=== PATIENT | male | born 1945 | race African-American/Black ===

== ENCOUNTER 2016-05-25 23:45 | Emergency (ER) | payer MEDICARE, BC ==
[~2016-05-25] VITALS: Ht 165.1 cm; Wt 108.9 kg
[~2016-05-25 23:45] MED LIST: ALLO300T PO; AMLO1CAP15 PO; ASPI81TA2 PO; CARV6.252 PO; DOCU-27 PO; DOXA4TAB3 PO; FURO40TA4 PO; GLIM1TAB2 PO; HYDR-2762 PO; IRON1TAB30 PO; METH4TAB2 PO; OXYC10TA PO; OXYC10TA32 PO; POTA25TA4 PO; TIZA4TAB8 PO; [UNRECOGNIZED DRUG - CODE] MC
[2016-05-26] MEDS ORDERED: NORMAL SALINE INJ ONE (00:15)
[2016-05-26] MEDS ORDERED: TRANEXAMIC ACID INJ ONE (00:15)
--- NOTE | 2016-05-26 01:22 | PHYS DOC ---
Past Medical History Past Medical History: Diabetes-Type II, High Cholesterol, Hypertension, Hypothyroid Additional Past Medical Histor: thyroid disease Past Surgical History: Other Additional Past Surgical Histo: left kidney biopsy-benign at [facility] 12/15 Alcohol Use: Heavy Drug Use: None Adult General Chief Complaint Chief Complaint: LACERATION/AVULSION HPI HPI 70-year-old male who is on Coumadin therapy who presents after biting the tip of his tongue with some mild oozing seen at the very distal portion of his tongue. Patient tried applying pressure but states it is still oozing. He denies any other injury. Denies any shortness of breath or chest pain. Pt is in no acute respiratory distress with some mild venous oozing at the tip of his tongue. Review of Systems Review of Systems Constitutional: Denies fever or chills [] Eyes: Denies change in visual acuity, redness, or eye pain [] HENT: Denies nasal congestion or sore throat [] Respiratory: Denies cough or shortness of breath [] Cardiovascular: No additional information not addressed in HPI [] GI: Denies abdominal pain, nausea, vomiting, bloody stools or diarrhea [] : Denies dysuria or hematuria [] Musculoskeletal: Denies back pain or joint pain [] Integument: Denies rash or skin lesions [] Neurologic: Denies headache, focal weakness or sensory changes [] Endocrine: Denies polyuria or polydipsia [] Current Medications Current Medications Current Medications Medications (Trade) Dose Ordered Sig/María Start Time Stop Time Status Last Admin Dose Admin Tranexamic Acid/ Sodium Chloride (Cyklokapron/Iv Sodium Chloride 0.9% 50ml) 11 ml @ 11 mls/min 1X ONCE 05/26/16 00:15 05/26/16 00:16 DC 05/26/16 00:15 11 MLS/MIN Allergies Allergies Allergies Coded Allergies Type Severity Reaction Last Updated Verified No Known Drug Allergies 01/05/15 No Physical Exam Physical Exam Constitutional: Well developed, well nourished, no acute distress, non-toxic appearance. [] HENT: Normocephalic, atraumatic, bilateral external ears normal, oropharynx moist, no oral exudates, nose normal, small focal area of oozing to the distal portion of the tongue, no significant laceration is seen. [] Eyes: PERRLA, EOMI, conjunctiva normal, no discharge. [] Neck: Normal range of motion, no tenderness, supple, no stridor. [] Cardiovascular:Heart rate regular rhythm, no murmur [] Lungs & Thorax: Bilateral breath sounds clear to auscultation [] Abdomen: Bowel sounds normal, soft, no tenderness, no masses, no pulsatile masses. [] Skin: Warm, dry, no erythema, no rash. [] Back: No tenderness, no CVA tenderness. [] Extremities: No tenderness, no cyanosis, no clubbing, ROM intact, no edema. [] Neurologic: Alert and oriented X 3, normal motor function, normal sensory function, no focal deficits noted. [] Psychologic: Affect normal, judgement normal, mood normal. [] Current Patient Data Vital Signs Vital Signs Date Time Temp Pulse Resp B/P Pulse Ox O2 Delivery O2 Flow Rate FiO2 05/26/16 01:40 82 16 167/87 96 Room Air 05/25/16 23:50 98.6 98.6 EKG EKG [] Radiology/Procedures Radiology/Procedures [] Course & Med Decision Making Course & Med Decision Making Pertinent Labs and Imaging studies reviewed. (See chart for details) This 70-year-old male who presented with a small amount of venous oozing to the distal portion of his tongue had pressure and gauze soaked in TXA applied directly to the area for approximately 30 minutes with resolution of bleeding. He will be discharged with instructions to have a soft liquid diet for the next several days and to return if he develops any worsening of his bleeding. There is no indication at this time to perform any laboratory workup. Dragon Disclaimer Dragon Disclaimer This electronic medical record was generated, in whole or in part, using a voice recognition dictation system. Departure Departure Impression: Primary Impression: Tongue laceration Disposition: 01 HOME, SELF-CARE Condition: STABLE Referrals: ALLISON BROWN MD (PCP) Patient Instructions: Tongue Laceration, [id number] Additional Instructions: Please follow up with your primary doctor in the next several days for your tongue injury. Use a soft liquid diet for the next several days and return to the ER if you develop any worsening of your bleeding. GINA PEREZ DO May 26, 2016 01:22
[2016-05-26 01:40] VITALS: BP 167/87
== END 2016-05-26 01:40 | disposition home or self-care (01) ==
LOC: ER 23:45
DX: S01.512A Laceration without foreign body of oral cavity, initial encounter (principal); E03.9 Hypothyroidism, unspecified; E78.00 Pure hypercholesterolemia, unspecified; E11.9 Type 2 diabetes mellitus without complications; I10 Essential (primary) hypertension; Z79.01 Long term (current) use of anticoagulants; W50.3XXA Accidental bite by another person, initial encounter; Y93.89 Activity, other specified; Y92.89 Other specified places as the place of occurrence of the external cause; Y99.8 Other external cause status
CPT/HCPCS: 99282; 99284-25

== ENCOUNTER 2016-12-07 08:09 | Inpatient (IN) | payer MEDICARE, BC ==
[~2016-12-07] VITALS: Ht 171.4 cm; Wt 108.9 kg
[~2016-12-07 08:09] MED LIST changes: +ASPI-630 PO; -ASPI81TA2 PO; +DOCU-109 PO; -DOCU-27 PO; -OXYC10TA32 PO; +OXYC10TA45 PO
--- NOTE | 2016-12-07 08:45 | PHYS DOC ---
Past Medical History Past Medical History: Diabetes-Type II, High Cholesterol, Hypertension, Hypothyroid Additional Past Medical Histor: thyroid disease Past Surgical History: Other Additional Past Surgical Histo: left kidney biopsy-benign at [facility] 12/15, hemorrhoidectomy Alcohol Use: Heavy Drug Use: None Adult General Chief Complaint Chief Complaint: DIZZY/LIGHT HEADED HPI HPI Patient is a 71 year old M who presents with dizziness. Patient states that since yesterday he just feels off balance and is a difficult he walking. Patient states when he walks he needs a hold on the something because his equilibrium was off. Patient denies having the room spinning. Patient states when he is lying down or sitting he feels fine and is only occurs when he walks. Patient denies any chest pain service of breath. Patient denies a headache or any blurry vision. Patient denies any nausea/vomiting/diarrhea. Patient is no other complaints. Patient denies any fevers. Review of Systems Review of Systems GEN: Denies fevers, chills, sweats HEENT: Denies blurred vision, sore throat CV: Denies chest pain RESP: Denies shortness of air, cough GI: Denies n/v/d NEURO: dizziness MSK: Denies weakness, joint pain/swelling Current Medications Current Medications Current Medications Medications (Trade) Dose Ordered Sig/María Start Time Stop Time Status Last Admin Dose Admin Info (Do NOT chart on this entry -- for MONITORING) 1 each PRN DAILY PRN 12/07/16 09:30 12/09/16 09:29 Iohexol (Omnipaque 300 Mg/ml) 75 ml STK-MED ONCE 12/07/16 09:53 12/07/16 09:54 DC Allergies Allergies Allergies Coded Allergies Type Severity Reaction Last Updated Verified No Known Drug Allergies 12/07/16 No Physical Exam Physical Exam GEN.: No apparent distress. Alert and oriented. HEENT: Head is normocephalic, atraumatic NECK: Supple. LUNGS: CTAB. HEART: RRR, S1, S2 present. Peripheral pulses intact ABDOMEN: Soft, nontender. Positive bowel sounds. EXTREMITIES: Without any cyanosis, 5 out of 5 muscle strength proximal and distal muscles of the upper extremity and lower extremity bilaterally NEUROLOGIC: Normal speech, normal tone, cranial nerves II through XII are grossly intact without any focal neurological deficits, normal finger to nose, normal [id number] PSYCHIATRIC: Normal affect, normal mood. SKIN: No ulcerations Current Patient Data Vital Signs Vital Signs Date Time Temp Pulse Resp B/P (MAP) Pulse Ox O2 Delivery O2 Flow Rate FiO2 12/07/16 12:12 70 20 165/86 (112) 100 Room Air 12/07/16 08:25 98.6 98.6 Lab Values Laboratory Tests Test 12/07/16 08:50 12/07/16 09:15 White Blood Count 7.9 x10^3/uL (4.0-11.0) Red Blood Count 4.25 x10^6/uL (4.30-5.70) L Hemoglobin 11.6 g/dL (13.0-17.5) L Hematocrit 36.1 % (39.0-53.0) L Mean Corpuscular Volume 85 fL (79-100) Mean Corpuscular Hemoglobin 27 pg (25-35) Mean Corpuscular Hemoglobin Concent 32 g/dL (31-37) Red Cell Distribution Width 17.3 % (11.5-14.5) H Platelet Count 286 x10^3/uL (140-400) Neutrophils (%) (Auto) 74 % (31-73) H Lymphocytes (%) (Auto) 20 % (24-48) L Monocytes (%) (Auto) 5 % (0-9) Eosinophils (%) (Auto) 1 % (0-3) Basophils (%) (Auto) 1 % (0-3) Neutrophils # (Auto) 5.8 x10^3uL (1.8-7.7) Lymphocytes # (Auto) 1.6 x10^3/uL (1.0-4.8) Monocytes # (Auto) 0.4 x10^3/uL (0.0-1.1) Eosinophils # (Auto) 0.1 x10^3/uL (0.0-0.7) Basophils # (Auto) 0.0 x10^3/uL (0.0-0.2) Sodium Level 143 mmol/L (136-145) Potassium Level 3.0 mmol/L (3.5-5.1) L Chloride Level 102 mmol/L (98-107) Carbon Dioxide Level 31 mmol/L (21-32) Anion Gap 10 (6-14) Blood Urea Nitrogen 5 mg/dL (8-26) L Creatinine 1.4 mg/dL (0.7-1.3) H Estimated GFR (Cockcroft-Gault) 60.1 BUN/Creatinine Ratio 4 (6-20) L Glucose Level 152 mg/dL (70-99) H Calcium Level 9.5 mg/dL (8.5-10.1) Total Bilirubin 0.4 mg/dL (0.2-1.0) Aspartate Amino Transferase (AST) 24 U/L (15-37) Alanine Aminotransferase (ALT) 25 U/L (16-63) Alkaline Phosphatase 171 U/L (46-116) H Troponin I Quantitative < 0.017 ng/mL (0.000-0.055) Total Protein 8.6 g/dL (6.4-8.2) H Albumin 3.9 g/dL (3.4-5.0) Albumin/Globulin Ratio 0.8 (1.0-1.7) L Urine Collection Type Unknown Urine Color Yellow Urine Clarity Clear Urine pH 7.5 Urine Specific Belt 1.010 Urine Protein 30 mg/dL (NEG-TRACE) Urine Glucose (UA) Negative mg/dL (NEG) Urine Ketones (Stick) Negative mg/dL (NEG) Urine Blood Negative (NEG) Urine Nitrite Negative (NEG) Urine Bilirubin Negative (NEG) Urine Urobilinogen Dipstick 0.2 mg/dL (0.2 mg/dL) Urine Leukocyte Esterase Negative (NEG) Urine RBC 1-2 /HPF (0-2) Urine WBC 0 /HPF (0-4) Urine Squamous Epithelial Cells Occ /LPF Urine Bacteria 0 /HPF (0-FEW) Laboratory Tests 12/07/16 08:50 Laboratory Tests 12/07/16 08:50 EKG EKG 0835: EKG shows normal sinus rhythm rate of 70 no STEMI[] Radiology/Procedures Radiology/Procedures CTA of the head and neck unremarkable Chest x-ray NAD[] Course & Med Decision Making Course & Med Decision Making Pertinent Labs and Imaging studies reviewed. (See chart for details) ED course: Patient was seen and examined emergency room CBC, CMP, troponin, CT A of the head and neck and chest x-ray were ordered along with EKG 1150: Patient was reevaluated and updated on lab results and CT results patient was still having symptoms therefore plan was to admit to rule out a cerebellar infarct 1209: Discussed CC/HP/PMH with Dr. colon and recommends admit [] [] Dragon Disclaimer Dragon Disclaimer This electronic medical record was generated, in whole or in part, using a voice recognition dictation system. Departure Departure Impression: Primary Impression: Cerebellar infarct Disposition: 09 ADMITTED INPATIENT Admitting Physician: Mikayla Colon Condition: IMPROVED Referrals: ALLISON BROWN MD (PCP) ZULEMA LIMA DO Dec 07, 2016 08:45
[2016-12-07 09:07] LABS: CALCIUM 9.5 mg/dL (8.5-10.1); CREATININE 1.4 mg/dL (0.7-1.3); GFR 60.1
[2016-12-07 09:13] LABS: ALBUMIN 3.9 g/dL (3.4-5.0); ALBUMIN/GLOBULIN RATIO 0.8 (1.0-1.7); BASO % 1 % (0-3); EOS % 1 % (0-3); HEMATOCRIT 36.1 % (39.0-53.0); HEMOGLOBIN 11.6 g/dL (13.0-17.5); LYMPH # 1.6 x10^3/uL (1.0-4.8); LYMPH % 20 % (24-48); MEAN CORPUSCULAR HEMOGLOBIN 27 pg (25-35); MEAN CORPUSCULAR HGB CONC 32 g/dL (31-37); MEAN CORPUSCULAR VOLUME 85 fL (79-100); MONO % 5 % (0-9); NEUT % 74 % (31-73); PLATELET COUNT 286 x10^3/uL (140-400); RED BLOOD COUNT 4.25 x10^6/uL (4.30-5.70); RED CELL DISTRIBUTION WIDTH 17.3 % (11.5-14.5); TOTAL BILIRUBIN 0.4 mg/dL (0.2-1.0); TOTAL PROTEIN 8.6 g/dL (6.4-8.2); WHITE BLOOD COUNT 7.9 x10^3/uL (4.0-11.0)
--- NOTE | 2016-12-07 09:23 | RAD ---
Portable chest, 12/07/2016: History: Dizziness Comparison is made to a study from 06/08/2015. A left-sided transvenous pacemaker has been inserted with one lead extending into the right ventricle while the tip of the other lead is projected over the superior aspect of the right atrium. The heart remains at the upper limits of normal in size. There is mild tortuosity of the thoracic aorta. The pulmonary vascularity is normal. There is minimal linear scarring in the right base. No pulmonary consolidation is seen. There is no evidence of pleural fluid or pneumothorax. IMPRESSION: 1. Interval insertion of a left-sided transvenous pacemaker. 2. No other significant change since 06/08/2015.
[2016-12-07] MEDS ORDERED: IOHEXOL 300 MG/ML 75 ML VIAL IV ONE (09:30)
[2016-12-07] MEDS ORDERED: CONTRAST GIVEN MC PRN (09:30)
[2016-12-07 09:35] LABS: BILIRUBIN,URINE NEGATIVE (NEG); GLUCOSE,URINE NEGATIVE (NEG); NITRITE,URINE NEGATIVE (NEG); PH,URINE 7.5; PROTEIN,URINE 30 mg/dL (NEG-TRACE); UROBILINOGEN,URINE 0.2 mg/dL (0.2 mg/dL)
[2016-12-07] MEDS ORDERED: IOHEXOL 300 MG/ML 75 ML VIAL ONE (09:53)
[2016-12-07 10:04] LABS: BACTERIA,URINE 0 /HPF (0-FEW); SQUAMOUS EPITHELIAL CELL,UR OCC /LPF; WBC,URINE 0 /HPF (0-4)
--- NOTE | 2016-12-07 11:19 | RAD ---
Indication dizziness. CTA targeted to the major vessels off the arch of the aorta was performed. The examination was carried throughout the head. Images were reformatted in the coronal and sagittal planes. Volume rendered images were also generated and reviewed. Approximately 75 cc of Omnipaque 300 was administered. The lung apices are clear. No significant soft tissue finding is seen in the neck. No mass or midline shift in the head is seen. No acute finding or mass is seen. The innominate artery is not seen at its origin but the visualized innominate appears unremarkable. The innominate artery bifurcates unremarkably into the right common carotid and right subclavian arteries. The origination of the left common carotid off the arch is unremarkable and the origin of the left subclavian is also unremarkable. That portion of the left subclavian which is seen appears unremarkable. On the right the common carotid artery is tortuous. There is some minimal plaquing at the bifurcation. The internal carotid also is somewhat tortuous. The horizontal and cavernous segments appear unremarkable and the supraclinoid portion of the vessel is also unremarkable. The left common carotid is also somewhat tortuous. There is some slight plaquing at the bifurcation without evidence of significant stenosis. The internal carotid is tortuous. The horizontal, cavernous and supraclinoid segments are unremarkable. The vertebral arteries originate unremarkably off their respective subclavian arteries. Both vertebral arteries appear unremarkable and unite to form the basilar artery which appears unremarkable. The left A1 segment is somewhat hypoplastic. This is likely a normal variant. No significant vascular anomaly is seen intracranially. The posterior fossa appears unremarkable. IMPRESSION: No evidence of significant arterial disease in the neck or head
[2016-12-07] MEDS ORDERED: MORPHINE SULFATE 4 MG/ML DISP.SYRIN. IV PRN (12:30)
[2016-12-07] MEDS ORDERED: ONDANSETRON PF 4 MG/2 ML VIAL. IV PRN (12:30)
[2016-12-07 14:15] VITALS: BP 171/89
[2016-12-07] MEDS ORDERED: CARV25TA2 PO (14:18)
[2016-12-07] MEDS ORDERED: HYDR-2762 PO (14:18)
[2016-12-07] MEDS ORDERED: WARF4TAB7 PO (14:18)
[2016-12-07] MEDS ORDERED: WARF6TAB49 PO (14:18)
--- NOTE | 2016-12-07 14:19 | EKG ---
[facility] [address] [place] [address] Test Date: 2016-12-07 Test Time: 08:30:51 Pat Name: MALINDA SARABIA Department: Room: [facility] Gender: M Medical Policy Specialist: : 1945 Requested By: ZULEMA LIMA Order Number: [id number] Reading MD: Heena Pulido Measurements Intervals [place] Rate: 70 P: MO: QRS: -36 QRSD: 96 T: 26 QT: 380 QTc: 413 Interpretive Statements ELECTRONIC PACEMAKER A PACED WITH NORMAL QRS CONDUCTION ABNORMAL LEFT AXIS DEVIATION LEFT ANTERIOR FASCICULAR BLOCK T ABNORMALITY IN ANTEROLATERAL LEADS ABNORMAL ECG Electronically Signed On 12-10-2016 9:34:32 CDT by Heena Pulido
[2016-12-07] MEDS ORDERED: POTA20TA82 PO (14:40)
[2016-12-07] MEDS ORDERED: LEVO75TA PO (14:40)
[2016-12-07] MEDS ORDERED: ATOR40TA59 PO (14:40)
[2016-12-07] MEDS ORDERED: FURO40TA4 PO (14:40)
[2016-12-07] MEDS ORDERED: DOCUSATE SODIUM 100 MG CAPSULE. PO PRN (15:30)
[2016-12-07] MEDS ORDERED: POTASSIUM CHLORIDE 20 MEQ TABLET.ER. PO ONE (15:30)
[2016-12-07] MEDS ORDERED: HYDROcodone/APAP 7.5/325MG 1 TAB TABLET PO PRN (15:30)
[2016-12-07 15:58] LABS: INR 2.6 (0.8-1.1); PROTHROMBIN TIME PATIENT 26.3 SEC (11.7-14.0)
--- NOTE | 2016-12-07 16:45 | RAD ---
Indication TIA. Grayscale color Doppler and spectral imaging was performed. Examination was targeted to the carotid bifurcations. On the right there is some slight plaquing. Note is made of a somewhat tortuous common carotid artery. The common carotid waveform and velocities are normal. The external carotid has a normal appearance. The internal carotid waveform and velocities are within normal limits. The vertebral is patent and demonstrates normal directional flow. On the left there is also some minimal plaquing at the bifurcation. The common carotid waveform and velocities are normal. The external carotid has a normal appearance. The internal carotid waveform and velocities are normal. The vertebral is patent and demonstrates normal directional flow. Visualized portions of both subclavian arteries appeared unremarkable. IMPRESSION: No evidence of hemodynamically significant stenosis at either carotid bifurcation. Stenosis 0-50%. Note: Stenosis calculations for CT, MR and conventional angiography are based upon determination of the distal ICA diameter in accordance with the NASCET methodology. Stenosis calculations for doppler studies are derived from validated velocity criteria which are known to correlate with NASCET methodology of determining stenosis.
--- NOTE | 2016-12-07 16:54 | PDOC2 ---
NEUROLOGY CONSULT Date of Admission Date of Admission DATE: 12/07/16 TIME: 16:45 Reason for Consult Reason for Consult: Possible cerebellar stroke Referring Physician Referring Physician: Dr. Aldana PCP: Dr. Jimenez Source Source: Chart review, Patient History of Present Illness History of Present Illness The patient is a 71-year-old right-handed male who started to field dizzy yesterday afternoon about 2 PM. He felt off balance. He was trying to put some eyedrops and and was feeling off balance then. There is no dysarthria, dysphagia , diplopia, numbness, weakness, tinnitus, hearing loss, or pain. For the nurse he describes some neck pain but he denies that to me.The patient does have diabetes. He has never had a stroke, seizure, or head injury. He still feels off balance today but denies true vertigo or ataxia. Past Medical History Cardiovascular: HTN, Hyperlipidemia Pulmonary: Other Musculoskeletal: Osteoarthritis Endocrine: Diabetes Past Surgical History Past Surgical History: Pacemaker, Other (left kidney) Family History Family History: CAD Social History Social History , no tobacco or alcohol in over 5 years Current Medications Current Medications Current Medications Iohexol (Omnipaque 300 Mg/ml) 75 ml 1X ONCE IV Last administered on 12/07/16t 10:15; Start 12/07/16 at 09:30; Stop 12/07/16 at 09:31; Status DC Info (Do NOT chart on this entry -- for MONITORING) 1 each PRN DAILY PRN MC SEE COMMENTS; Start 12/07/16 at 09:30; Stop 12/09/16 at 09:29 Iohexol (Omnipaque 300 Mg/ml) 75 ml STK-MED ONCE .ROUTE ; Start 12/07/16 at 09:53 ; Stop 12/07/16 at 09:54; Status DC Ondansetron HCl (Zofran) 4 mg PRN Q8HRS PRN IV NAUSEA/VOMITING; Start 12/07/16 at 12:30; Stop 12/08/16 at 12:29 Morphine Sulfate 4 mg PRN Q2HR PRN IV PAIN; Start 12/07/16 at 12:30; Stop at 12:29 Potassium Chloride (Klor-Con) 40 meq 1X ONCE PO ; Start 12/07/16 at 15:30; Stop 12/07/16 at 15:40; Status DC Potassium Chloride (Klor-Con) 20 meq DAILYWBKFT PO ; Start 12/08/16 at 08:00 Allopurinol (Zyloprim) 300 mg DAILY PO ; Start 12/08/16 at 09:00 Atorvastatin Calcium (Lipitor) 40 mg QHS PO ; Start 12/07/16 at 21:00 Docusate Sodium (Colace) 100 mg PRN BID PRN PO CONSTIPATION; Start 12/07/16 at 15:30 Doxazosin Mesylate (Cardura) 4 mg DAILY PO ; Start 12/08/16 at 09:00 Furosemide (Lasix) 40 mg DAILY PO ; Start 12/08/16 at 09:00 Acetaminophen/ Hydrocodone Bitart (Lortab 7.5/325) 1 tab PRN Q6HRS PRN PO PAIN ; Start 12/07/16 at 15:30 Levothyroxine Sodium (Synthroid) 75 mcg DAILY07 PO ; Start 12/08/16 at 07:00 Warfarin Sodium (Coumadin) 4 mg SuMoTuThFr PO ; Start 12/08/16 at 16:00 Warfarin Sodium (Coumadin) 6 mg WeSa PO ; Start 12/10/16 at 16:00 Carvedilol (Coreg) 25 mg BIDWMEALS PO ; Start 12/07/16 at 17:00 Glimepiride (Amaryl) 1 mg DAILY PO ; Start 12/08/16 at 09:00 Aspirin (Kailyn Aspirin) 325 mg DAILYWBKFT PO ; Start 12/08/16 at 08:00 Active Scripts Active Colace (Docusate Sodium) 100 Mg Capsule 100 Cap PO PRN BID PRN Reported Potassium Chloride 20 Meq Tablet.er 20 Meq PO DAILY Furosemide 40 Mg Tablet 40 Mg PO DAILY Atorvastatin Calcium 40 Mg Tablet 40 Mg PO DAILY Synthroid (Levothyroxine Sodium) 75 Mcg Tablet 75 Mcg PO DAILYAC Hydrocodone-Apap 7.5-325 (Hydrocodone Bit/Acetaminophen) 1 Each Tablet 1 Tab PO PRN Q6HRS PRN Warfarin Sodium 4 Mg Tablet 4 Mg PO DAILY 4 mg Sun, Mon, , , Monday Coumadin (Warfarin Sodium) 6 Mg Tablet 6 Mg PO DAILY 6 mg Monday and Monday Carvedilol 25 Mg Tablet 25 Mg PO BIDWMEALS Aspirin 81 Mg Tab.chew 1 Tab PO BID Iron 100 Plus Tablet (Iron,Carbonyl/Vit C/Vit B12/Fa) 1 Each Tablet 1 Each PO Allopurinol 300 Mg Tablet 1 Tab PO DAILY Glimepiride 1 Mg Tablet 1 Tab PO DAILY Doxazosin Mesylate 4 Mg Tablet 1 Tab PO DAILY Allergies Allergies: Coded Allergies: No Known Drug Allergies (Unverified , 12/07/16) ROS Review of System Patient denies fevers, chills, weight loss, dyspnea, angina, abdominal pain, change in bowels, or dysuria. 14 point review of systems is negative. Physical Exam Physical Examination PHYSICAL EXAMINATION: Vital signs: see above. General appearance is normal and in no acute distress. HEENT: Normocephalic and nontraumatic. Eyes, nose, ears, and throat are unremarkable. Tympanic membranes are clear Neck is supple. No lymphadenopathy. No bruits are heard over the carotid artery. No crepitus. NEUROLOGICAL EXAMINATION: Mental Status Examination: Alert. Oriented to time, place, and person. Answers questions and follows commends. Pupils are equal round and reactive to light and accommodation. Extraocular movements are intact. Vestibular ocular reflex is normal, and there is no nice Stegman's. Visual field exam shows no defect on the direct confrontation. No motor or sensory deficits on the facial exam. Uvula in the midline and the soft palate elevated symmetrically. No deviation of the tongue to any direction. Gross hearing is normal. Shoulder shrug normal. Muscle tone is normal. Muscle strength is 5/5. Deep tendon reflexes are 0+ all around. Plantar reflex is with flexion response bilaterally. Finger -to-nose test performance is accurate. Alternative movements are accurate. Gait is apraxic. Sensory exam shows stocking loss. No cerebellar signs are elicited. Vitals VITALS Vital Signs Date Time Temp Pulse Resp B/P (MAP) Pulse Ox O2 Delivery O2 Flow Rate FiO2 12/07/16 15:36 Room Air 12/07/16 14:15 97.8 72 20 171/89 (116) 94 97.8 Labs Labs Laboratory Tests Test 12/07/16 08:50 12/07/16 09:15 White Blood Count 7.9 x10^3/uL (4.0-11.0) Red Blood Count 4.25 x10^6/uL (4.30-5.70) Hemoglobin 11.6 g/dL (13.0-17.5) Hematocrit 36.1 % (39.0-53.0) Mean Corpuscular Volume 85 fL (79-100) Mean Corpuscular Hemoglobin 27 pg (25-35) Mean Corpuscular Hemoglobin Concent 32 g/dL (31-37) Red Cell Distribution Width 17.3 % (11.5-14.5) Platelet Count 286 x10^3/uL (140-400) Neutrophils (%) (Auto) 74 % (31-73) Lymphocytes (%) (Auto) 20 % (24-48) Monocytes (%) (Auto) 5 % (0-9) Eosinophils (%) (Auto) 1 % (0-3) Basophils (%) (Auto) 1 % (0-3) Neutrophils # (Auto) 5.8 x10^3uL (1.8-7.7) Lymphocytes # (Auto) 1.6 x10^3/uL (1.0-4.8) Monocytes # (Auto) 0.4 x10^3/uL (0.0-1.1) Eosinophils # (Auto) 0.1 x10^3/uL (0.0-0.7) Basophils # (Auto) 0.0 x10^3/uL (0.0-0.2) Prothrombin Time 26.3 SEC (11.7-14.0) Prothromb Time International Ratio 2.6 (0.8-1.1) Sodium Level 143 mmol/L (136-145) Potassium Level 3.0 mmol/L (3.5-5.1) Chloride Level 102 mmol/L (98-107) Carbon Dioxide Level 31 mmol/L (21-32) Anion Gap 10 (6-14) Blood Urea Nitrogen 5 mg/dL (8-26) Creatinine 1.4 mg/dL (0.7-1.3) Estimated GFR (Cockcroft-Gault) 60.1 BUN/Creatinine Ratio 4 (6-20) Glucose Level 152 mg/dL (70-99) Calcium Level 9.5 mg/dL (8.5-10.1) Total Bilirubin 0.4 mg/dL (0.2-1.0) Aspartate Amino Transf (AST/SGOT) 24 U/L (15-37) Alanine Aminotransferase (ALT/SGPT) 25 U/L (16-63) Alkaline Phosphatase 171 U/L (46-116) Troponin I Quantitative < 0.017 ng/mL (0.000-0.055) Total Protein 8.6 g/dL (6.4-8.2) Albumin 3.9 g/dL (3.4-5.0) Albumin/Globulin Ratio 0.8 (1.0-1.7) Urine Collection Type Unknown Urine Color Yellow Urine Clarity Clear Urine pH 7.5 Urine Specific [place] 1.010 Urine Protein 30 mg/dL (NEG-TRACE) Urine Glucose (UA) Negative mg/dL (NEG) Urine Ketones (Stick) Negative mg/dL (NEG) Urine Blood Negative (NEG) Urine Nitrite Negative (NEG) Urine Bilirubin Negative (NEG) Urine Urobilinogen Dipstick 0.2 mg/dL (0.2 mg/dL) Urine Leukocyte Esterase Negative (NEG) Urine RBC 1-2 /HPF (0-2) Urine WBC 0 /HPF (0-4) Urine Squamous Epithelial Cells Occ /LPF Urine Bacteria 0 /HPF (0-FEW) Laboratory Tests Test 12/07/16 08:50 12/07/16 09:15 White Blood Count 7.9 x10^3/uL (4.0-11.0) Red Blood Count 4.25 x10^6/uL (4.30-5.70) Hemoglobin 11.6 g/dL (13.0-17.5) Hematocrit 36.1 % (39.0-53.0) Mean Corpuscular Volume 85 fL (79-100) Mean Corpuscular Hemoglobin 27 pg (25-35) Mean Corpuscular Hemoglobin Concent 32 g/dL (31-37) Red Cell Distribution Width 17.3 % (11.5-14.5) Platelet Count 286 x10^3/uL (140-400) Neutrophils (%) (Auto) 74 % (31-73) Lymphocytes (%) (Auto) 20 % (24-48) Monocytes (%) (Auto) 5 % (0-9) Eosinophils (%) (Auto) 1 % (0-3) Basophils (%) (Auto) 1 % (0-3) Neutrophils # (Auto) 5.8 x10^3uL (1.8-7.7) Lymphocytes # (Auto) 1.6 x10^3/uL (1.0-4.8) Monocytes # (Auto) 0.4 x10^3/uL (0.0-1.1) Eosinophils # (Auto) 0.1 x10^3/uL (0.0-0.7) Basophils # (Auto) 0.0 x10^3/uL (0.0-0.2) Prothrombin Time 26.3 SEC (11.7-14.0) Prothromb Time International Ratio 2.6 (0.8-1.1) Sodium Level 143 mmol/L (136-145) Potassium Level 3.0 mmol/L (3.5-5.1) Chloride Level 102 mmol/L (98-107) Carbon Dioxide Level 31 mmol/L (21-32) Anion Gap 10 (6-14) Blood Urea Nitrogen 5 mg/dL (8-26) Creatinine 1.4 mg/dL (0.7-1.3) Estimated GFR (Cockcroft-Gault) 60.1 BUN/Creatinine Ratio 4 (6-20) Glucose Level 152 mg/dL (70-99) Calcium Level 9.5 mg/dL (8.5-10.1) Total Bilirubin 0.4 mg/dL (0.2-1.0) Aspartate Amino Transf (AST/SGOT) 24 U/L (15-37) Alanine Aminotransferase (ALT/SGPT) 25 U/L (16-63) Alkaline Phosphatase 171 U/L (46-116) Troponin I Quantitative < 0.017 ng/mL (0.000-0.055) Total Protein 8.6 g/dL (6.4-8.2) Albumin 3.9 g/dL (3.4-5.0) Albumin/Globulin Ratio 0.8 (1.0-1.7) Urine Collection Type Unknown Urine Color Yellow Urine Clarity Clear Urine pH 7.5 Urine Specific [place] 1.010 Urine Protein 30 mg/dL (NEG-TRACE) Urine Glucose (UA) Negative mg/dL (NEG) Urine Ketones (Stick) Negative mg/dL (NEG) Urine Blood Negative (NEG) Urine Nitrite Negative (NEG) Urine Bilirubin Negative (NEG) Urine Urobilinogen Dipstick 0.2 mg/dL (0.2 mg/dL) Urine Leukocyte Esterase Negative (NEG) Urine RBC 1-2 /HPF (0-2) Urine WBC 0 /HPF (0-4) Urine Squamous Epithelial Cells Occ /LPF Urine Bacteria 0 /HPF (0-FEW) Images Images CTA targeted to the major vessels off the arch of the aorta was performed. The examination was carried throughout the head. Images were reformatted in the coronal and sagittal planes. Volume rendered images were also generated and reviewed. Approximately 75 cc of Omnipaque 300 was administered. The lung apices are clear. No significant soft tissue finding is seen in the neck. No mass or midline shift in the head is seen. No acute finding or mass is seen. The innominate artery is not seen at its origin but the visualized innominate appears unremarkable. The innominate artery bifurcates unremarkably into the right common carotid and right subclavian arteries. The origination of the left common carotid off the arch is unremarkable and the origin of the left subclavian is also unremarkable. That portion of the left subclavian which is seen appears unremarkable. On the right the common carotid artery is tortuous. There is some minimal plaquing at the bifurcation. The internal carotid also is somewhat tortuous. The horizontal and cavernous segments appear unremarkable and the supraclinoid portion of the vessel is also unremarkable. The left common carotid is also somewhat tortuous. There is some slight plaquing at the bifurcation without evidence of significant stenosis. The internal carotid is tortuous. The horizontal, cavernous and supraclinoid segments are unremarkable. The vertebral arteries originate unremarkably off their respective subclavian arteries. Both vertebral arteries appear unremarkable and unite to form the basilar artery which appears unremarkable. The left A1 segment is somewhat hypoplastic. This is likely a normal variant. No significant vascular anomaly is seen intracranially. The posterior fossa appears unremarkable. IMPRESSION: No evidence of significant arterial disease in the neck or head Assessment/Plan Assessment/Plan Impression: Exam more consistent with gait apraxia due to diabetic neuropathy, with stroke less likely Recommendation: PT/OT/ST Check if pacemaker is MRI-compatible, otherwise repeat CT head in 2 days. Hold on echo. Had CTA, carotids ordered anyway. Aspirin Check lipids Thank you for letting me help with the patient's care. CAREY PINA MD Dec 07, 2016 16:54
[2016-12-07] MEDS: CARVEDILOL 12.5 MG TABLET. PO SCH (17:39)
--- NOTE | 2016-12-07 18:03 | PDOC1 ---
History and Physical Date of Admission Date of Admission DATE: 12/07/16 TIME: 18:02 Identification/Chief Complaint Chief Complaint no balance, poor coordination Problems: Source Source: Caregiver, Chart review History of Present Illness History of Present Illness MR Guerra is a 71-year-old male admit for new weakness and trouble walking. He does not feel dizzy or that he or the room is spinning. He describes poor balance, and feeling that he may fall, but has not done so. He can climb stairs, but would need to hold on to the railing (and he motioned in a drastic manner) he has a cane with him, he reports this is a new time, and he did not need a cane a few days ago. no pain, no weight change + compliant iwth meds he reports his symptoms mostly started yesterday, and are now improved in the past few hours since arriving to ER Past Medical History Cardiovascular: HTN, Hyperlipidemia Pulmonary: Other Musculoskeletal: Osteoarthritis Endocrine: Diabetes Past Surgical History Past Surgical History: Pacemaker, Other (left kidney) Family History Family History: Diabetes Social History Smoke: Quit ALCOHOL: none (quit) Drugs: None Current Problem List Problem List Problems Medical Problems: (1) Cerebellar infarct Status: Acute Problems: Current Medications Current Medications Current Medications Iohexol (Omnipaque 300 Mg/ml) 75 ml 1X ONCE IV Last administered on 12/07/16t 10:15; Start 12/07/16 at 09:30; Stop 12/07/16 at 09:31; Status DC Info (Do NOT chart on this entry -- for MONITORING) 1 each PRN DAILY PRN MC SEE COMMENTS; Start 12/07/16 at 09:30; Stop 12/09/16 at 09:29 Iohexol (Omnipaque 300 Mg/ml) 75 ml STK-MED ONCE .ROUTE ; Start 12/07/16 at 09:53 ; Stop 12/07/16 at 09:54; Status DC Ondansetron HCl (Zofran) 4 mg PRN Q8HRS PRN IV NAUSEA/VOMITING; Start 12/07/16 at 12:30; Stop 12/08/16 at 12:29 Morphine Sulfate 4 mg PRN Q2HR PRN IV PAIN; Start 12/07/16 at 12:30; Stop at 12:29 Potassium Chloride (Klor-Con) 40 meq 1X ONCE PO Last administered on 12/07/16 17:38; Start 12/07/16 at 15:30; Stop 12/07/16 at 15:40; Status DC Potassium Chloride (Klor-Con) 20 meq DAILYWBKFT PO ; Start 12/08/16 at 08:00 Allopurinol (Zyloprim) 300 mg DAILY PO ; Start 12/08/16 at 09:00 Atorvastatin Calcium (Lipitor) 40 mg QHS PO ; Start 12/07/16 at 21:00 Docusate Sodium (Colace) 100 mg PRN BID PRN PO CONSTIPATION; Start 12/07/16 at 15:30 Doxazosin Mesylate (Cardura) 4 mg DAILY PO ; Start 12/08/16 at 09:00 Furosemide (Lasix) 40 mg DAILY PO ; Start 12/08/16 at 09:00 Acetaminophen/ Hydrocodone Bitart (Lortab 7.5/325) 1 tab PRN Q6HRS PRN PO PAIN ; Start 12/07/16 at 15:30 Levothyroxine Sodium (Synthroid) 75 mcg DAILY07 PO ; Start 12/08/16 at 07:00 Warfarin Sodium (Coumadin) 4 mg SuMoTuThFr PO ; Start 12/08/16 at 16:00 Warfarin Sodium (Coumadin) 6 mg WeSa PO ; Start 12/10/16 at 16:00 Carvedilol (Coreg) 25 mg BIDWMEALS PO Last administered on 12/07/16 17:39; Start 12/07/16 at 17:00 Glimepiride (Amaryl) 1 mg DAILY PO ; Start 12/08/16 at 09:00 Aspirin (Kailyn Aspirin) 325 mg DAILYWBKFT PO ; Start 12/08/16 at 08:00 Active Scripts Active Colace (Docusate Sodium) 100 Mg Capsule 100 Cap PO PRN BID PRN Reported Potassium Chloride 20 Meq Tablet.er 20 Meq PO DAILY Furosemide 40 Mg Tablet 40 Mg PO DAILY Atorvastatin Calcium 40 Mg Tablet 40 Mg PO DAILY Synthroid (Levothyroxine Sodium) 75 Mcg Tablet 75 Mcg PO DAILYAC Hydrocodone-Apap 7.5-325 (Hydrocodone Bit/Acetaminophen) 1 Each Tablet 1 Tab PO PRN Q6HRS PRN Warfarin Sodium 4 Mg Tablet 4 Mg PO DAILY 4 mg Sun, Mon, , , Monday Coumadin (Warfarin Sodium) 6 Mg Tablet 6 Mg PO DAILY 6 mg Monday and Monday Carvedilol 25 Mg Tablet 25 Mg PO BIDWMEALS Aspirin 81 Mg Tab.chew 1 Tab PO BID Iron 100 Plus Tablet (Iron,Carbonyl/Vit C/Vit B12/Fa) 1 Each Tablet 1 Each PO Allopurinol 300 Mg Tablet 1 Tab PO DAILY Glimepiride 1 Mg Tablet 1 Tab PO DAILY Doxazosin Mesylate 4 Mg Tablet 1 Tab PO DAILY Allergies Allergies: Coded Allergies: No Known Drug Allergies (Unverified , 12/07/16) ROS General: No: Chills, Night Sweats, Malaise, Appetite, Other PSYCHOLOGICAL ROS: No: Anxiety, Behavioral Disorder, Concentration difficultie , Decreased libido, Depression, Disorientation, Hallucinations, Hostility, Irritablity, Memory difficulties, Mood Swings, Obsessive thoughts, Other Eyes: No Blurry vision, No Decreased vision, No Double vision, No Dry eyes, No Excessive tearing, No Eye Pain, No Itchy Eyes, No Loss of vision, No Photophobia , No Scotomata, No Uses contacts, No Uses glasses, No Other HEENT: No: Heacaches, Visual Changes, Hearing change, Nasal congestion, Nasal discharge, Oral lesions, Sinus pain, Sore Throat, Epistaxis, Sneezing, Snoring, Tinnitus, Vertigo, Vocal changes, Other Respiratory: No: Cough, Hemoptysis, Orthopnea, Pleuritic Pain, Shortness of breath, SOB with excertion, Sputum Changes, Stridor, Tachypnea, Wheezing, Other Cardiovascular: No Chest Pain, No Palpitations, No Orthopnea, No Paroxysmal Noc. Dyspnea, No Edema, No Lt Headedness, No Other Gastrointestinal: No Nausea, No Vomiting, No Abdominal Pain, No Diarrhea, No Constipation, No Melena, No Hematochezia, No Other Musculoskeletal: Yes Gait Disturbance, Yes Joint Stiffness, No Joint Pain, No Joint Swelling, No Muscle Pain, No Muscular Weakness, No Pain In:, No Swelling In:, No Other Neurological: Yes Gait Disturbance, Yes Impaired Coord/balance, No Behavorial Changes, No Bowel/Bladder ControlChng, No Confusion, No Dizziness, No Headaches, No Memory Loss, No Numbness/Tingling, No Seizures, No Speech Problems, No Tremors, No Visual Changes, No Weakness, No Other Skin: Yes Dry Skin, No Eczema, No Hair Changes, No Lumps, No Mole Changes, No Mottling, No Nail Changes, No Pruritus, No Rash, No Skin Lesion Changes, No Other, No Acne Physical Exam General: Alert, Oriented X3, Cooperative, No acute distress HEENT: EOMI, Mucous membr. moist/pink Lungs: Normal air movement Heart: no gallops, no murmurs Abdomen: Normal bowel sounds, Soft Rectal Exam: not examined Extremities: No clubbing, No edema, Normal pulses Skin: No breakdown, No significant lesion Neuro: Normal speech, Normal tone, Sensation intact Psych/Mental Status: Mood NL Vitals Vitals Vital Signs Date Time Temp Pulse Resp B/P (MAP) Pulse Ox O2 Delivery O2 Flow Rate FiO2 12/07/16 17:39 72 171/89 12/07/16 15:36 Room Air 12/07/16 14:15 97.8 20 94 97.8 Labs Labs Laboratory Tests Test 12/07/16 08:50 12/07/16 09:15 12/07/16 17:36 White Blood Count 7.9 x10^3/uL (4.0-11.0) Red Blood Count 4.25 x10^6/uL (4.30-5.70) Hemoglobin 11.6 g/dL (13.0-17.5) Hematocrit 36.1 % (39.0-53.0) Mean Corpuscular Volume 85 fL (79-100) Mean Corpuscular Hemoglobin 27 pg (25-35) Mean Corpuscular Hemoglobin Concent 32 g/dL (31-37) Red Cell Distribution Width 17.3 % (11.5-14.5) Platelet Count 286 x10^3/uL (140-400) Neutrophils (%) (Auto) 74 % (31-73) Lymphocytes (%) (Auto) 20 % (24-48) Monocytes (%) (Auto) 5 % (0-9) Eosinophils (%) (Auto) 1 % (0-3) Basophils (%) (Auto) 1 % (0-3) Neutrophils # (Auto) 5.8 x10^3uL (1.8-7.7) Lymphocytes # (Auto) 1.6 x10^3/uL (1.0-4.8) Monocytes # (Auto) 0.4 x10^3/uL (0.0-1.1) Eosinophils # (Auto) 0.1 x10^3/uL (0.0-0.7) Basophils # (Auto) 0.0 x10^3/uL (0.0-0.2) Prothrombin Time 26.3 SEC (11.7-14.0) Prothromb Time International Ratio 2.6 (0.8-1.1) Sodium Level 143 mmol/L (136-145) Potassium Level 3.0 mmol/L (3.5-5.1) Chloride Level 102 mmol/L (98-107) Carbon Dioxide Level 31 mmol/L (21-32) Anion Gap 10 (6-14) Blood Urea Nitrogen 5 mg/dL (8-26) Creatinine 1.4 mg/dL (0.7-1.3) Estimated GFR (Cockcroft-Gault) 60.1 BUN/Creatinine Ratio 4 (6-20) Glucose Level 152 mg/dL (70-99) Calcium Level 9.5 mg/dL (8.5-10.1) Total Bilirubin 0.4 mg/dL (0.2-1.0) Aspartate Amino Transf (AST/SGOT) 24 U/L (15-37) Alanine Aminotransferase (ALT/SGPT) 25 U/L (16-63) Alkaline Phosphatase 171 U/L (46-116) Troponin I Quantitative < 0.017 ng/mL (0.000-0.055) Total Protein 8.6 g/dL (6.4-8.2) Albumin 3.9 g/dL (3.4-5.0) Albumin/Globulin Ratio 0.8 (1.0-1.7) Urine Collection Type Unknown Urine Color Yellow Urine Clarity Clear Urine pH 7.5 Urine Specific [place] 1.010 Urine Protein 30 mg/dL (NEG-TRACE) Urine Glucose (UA) Negative mg/dL (NEG) Urine Ketones (Stick) Negative mg/dL (NEG) Urine Blood Negative (NEG) Urine Nitrite Negative (NEG) Urine Bilirubin Negative (NEG) Urine Urobilinogen Dipstick 0.2 mg/dL (0.2 mg/dL) Urine Leukocyte Esterase Negative (NEG) Urine RBC 1-2 /HPF (0-2) Urine WBC 0 /HPF (0-4) Urine Squamous Epithelial Cells Occ /LPF Urine Bacteria 0 /HPF (0-FEW) Glucose (Fingerstick) 94 mg/dL (70-99) Laboratory Tests Test 12/07/16 08:50 12/07/16 09:15 12/07/16 17:36 White Blood Count 7.9 x10^3/uL (4.0-11.0) Red Blood Count 4.25 x10^6/uL (4.30-5.70) Hemoglobin 11.6 g/dL (13.0-17.5) Hematocrit 36.1 % (39.0-53.0) Mean Corpuscular Volume 85 fL (79-100) Mean Corpuscular Hemoglobin 27 pg (25-35) Mean Corpuscular Hemoglobin Concent 32 g/dL (31-37) Red Cell Distribution Width 17.3 % (11.5-14.5) Platelet Count 286 x10^3/uL (140-400) Neutrophils (%) (Auto) 74 % (31-73) Lymphocytes (%) (Auto) 20 % (24-48) Monocytes (%) (Auto) 5 % (0-9) Eosinophils (%) (Auto) 1 % (0-3) Basophils (%) (Auto) 1 % (0-3) Neutrophils # (Auto) 5.8 x10^3uL (1.8-7.7) Lymphocytes # (Auto) 1.6 x10^3/uL (1.0-4.8) Monocytes # (Auto) 0.4 x10^3/uL (0.0-1.1) Eosinophils # (Auto) 0.1 x10^3/uL (0.0-0.7) Basophils # (Auto) 0.0 x10^3/uL (0.0-0.2) Prothrombin Time 26.3 SEC (11.7-14.0) Prothromb Time International Ratio 2.6 (0.8-1.1) Sodium Level 143 mmol/L (136-145) Potassium Level 3.0 mmol/L (3.5-5.1) Chloride Level 102 mmol/L (98-107) Carbon Dioxide Level 31 mmol/L (21-32) Anion Gap 10 (6-14) Blood Urea Nitrogen 5 mg/dL (8-26) Creatinine 1.4 mg/dL (0.7-1.3) Estimated GFR (Cockcroft-Gault) 60.1 BUN/Creatinine Ratio 4 (6-20) Glucose Level 152 mg/dL (70-99) Calcium Level 9.5 mg/dL (8.5-10.1) Total Bilirubin 0.4 mg/dL (0.2-1.0) Aspartate Amino Transf (AST/SGOT) 24 U/L (15-37) Alanine Aminotransferase (ALT/SGPT) 25 U/L (16-63) Alkaline Phosphatase 171 U/L (46-116) Troponin I Quantitative < 0.017 ng/mL (0.000-0.055) Total Protein 8.6 g/dL (6.4-8.2) Albumin 3.9 g/dL (3.4-5.0) Albumin/Globulin Ratio 0.8 (1.0-1.7) Urine Collection Type Unknown Urine Color Yellow Urine Clarity Clear Urine pH 7.5 Urine Specific [place] 1.010 Urine Protein 30 mg/dL (NEG-TRACE) Urine Glucose (UA) Negative mg/dL (NEG) Urine Ketones (Stick) Negative mg/dL (NEG) Urine Blood Negative (NEG) Urine Nitrite Negative (NEG) Urine Bilirubin Negative (NEG) Urine Urobilinogen Dipstick 0.2 mg/dL (0.2 mg/dL) Urine Leukocyte Esterase Negative (NEG) Urine RBC 1-2 /HPF (0-2) Urine WBC 0 /HPF (0-4) Urine Squamous Epithelial Cells Occ /LPF Urine Bacteria 0 /HPF (0-FEW) Glucose (Fingerstick) 94 mg/dL (70-99) VTE Prophylaxis Ordered VTE Prophylaxis Devices: Yes VTE Pharmacological Prophylaxi: No Assessment/Plan Assessment/Plan ataxia, new w. gait instability and poor coordination, DM2 htn obesity, BMI 36 hypokalemia, acute on chronic replacement, CHF, chroinc diastolic Afib, rate controlled check INR, labs, lipids, TSH, A1c hgb Neuro consult, CT angio repeatedly mentioned the high level or tortuosity of major vessels, BARB DE OLIVEIRA MD Dec 07, 2016 18:03
[2016-12-07 19:53] VITALS: BP 134/81
[2016-12-07 19:59] VITALS: BP 134/81
[2016-12-07] MEDS: ATORVASTATIN CALCIUM 40 MG TABLET. PO SCH (20:51)
[2016-12-07 23:50] VITALS: BP 133/87
--- NOTE | 2016-12-08 01:29 | ACF ---
Admission Forms Criteria STROKE: ISCHEMIC (Place 'X' for any and all applicable criteria): Admission is indicated for 1 or more of the following (1)(2)(3)(4)(5)(6)(7)(8) [X]I. Acute stroke Extended stay beyond goal length of stay may be needed for(1)(2) [ ]a) Major deficit or clinical deterioration [ ]b) Hospital-acquired infection (eg, urinary tract infection, pneumonia) [ ]c) Embolic cause of stroke [ ]d) Venous thromboembolism(9) [ ]e) Seizures [ ]f) Bleeding (eg, cerebral) [ ]g) Increased intracranial pressure [ ]h) Comorbidities [ ]i) Surgical intervention The original [facility] content created by [employer] has been revised. The portions of the content which have been revised are identified through the use of italic text, and [facility] has neither reviewed nor approved the modified material. All other unmodified content is copyright [facility] [employer]. Please see references footnoted in the original [facility] [employer] edition 2014 Admission Criteria Met?: Yes KYMBERLY RICK Dec 08, 2016 01:29
[2016-12-08 03:47] VITALS: BP 133/88
[2016-12-08 05:02] LABS: BASO % 1 % (0-3); EOS % 2 % (0-3); HEMATOCRIT 33.3 % (39.0-53.0); HEMOGLOBIN 10.7 g/dL (13.0-17.5); LYMPH % 26 % (24-48); MEAN CORPUSCULAR HEMOGLOBIN 27 pg (25-35); MEAN CORPUSCULAR HGB CONC 32 g/dL (31-37); MEAN CORPUSCULAR VOLUME 85 fL (79-100); MONO % 7 % (0-9); NEUT % 64 % (31-73); PLATELET COUNT 269 x10^3/uL (140-400); RED BLOOD COUNT 3.92 x10^6/uL (4.30-5.70); RED CELL DISTRIBUTION WIDTH 17.2 % (11.5-14.5); WHITE BLOOD COUNT 7.6 x10^3/uL (4.0-11.0)
[2016-12-08 05:09] LABS: INR 2.3 (0.8-1.1); PROTHROMBIN TIME PATIENT 23.6 SEC (11.7-14.0)
[2016-12-08 05:21] LABS: CALCIUM 8.8 mg/dL (8.5-10.1); CREATININE 1.5 mg/dL (0.7-1.3); GFR 55.5; MAGNESIUM 1.6 mg/dL (1.8-2.4); POTASSIUM 3.1 mmol/L (3.5-5.1)
[2016-12-08 05:23] LABS: CHOLESTEROL/HDL RATIO 2.8
[2016-12-08] MEDS: LEVOTHYROXINE 75 MCG TABLET PO SCH (06:28)
[2016-12-08 07:00] VITALS: BP 154/85
[2016-12-08] MEDS: ALLOPURINOL 300 MG TABLET. PO SCH (08:26)
[2016-12-08] MEDS: ASPIRIN 325 MG TABLET PO SCH (08:26)
[2016-12-08] MEDS: FUROSEMIDE 40 MG TABLET. PO SCH (08:26)
[2016-12-08] MEDS: POTASSIUM CHLORIDE 20 MEQ TABLET.ER. PO SCH (08:26)
[2016-12-08] MEDS: CARVEDILOL 12.5 MG TABLET. PO SCH ×2 (08:27→17:47)
[2016-12-08] MEDS: GLIMEPIRIDE 2 MG TABLET. PO SCH (08:27)
[2016-12-08] MEDS: DOXAZOSIN MESYLATE 4 MG TABLET. PO SCH (08:27)
--- NOTE | 2016-12-08 09:06 | PDOC ---
Provider Note Provider Note 12/08/2016 0900 The pacemaker is [employer]. Pt follow with Dr. Grullon from cardiology. His pacemaker is MRI compatible. RAÚL LAUREN APRN Dec 08, 2016 09:05
[2016-12-08] MEDS ORDERED: POTASSIUM CHLORIDE 20 MEQ TABLET.ER. PO ONE (09:45)
[2016-12-08] MEDS ORDERED: MAGNESIUM SULFATE 2GM 50 ML IV ONE (10:00)
[2016-12-08 10:40] VITALS: BP 151/72
[2016-12-08] MEDS ORDERED: MAGNESIUM HYDROXIDE 2,400 MG/30 ML ORAL.SUSP. PO PRN (11:15)
[2016-12-08] MEDS: DOCUSATE SODIUM 100 MG CAPSULE. PO SCH ×2 (11:24→21:17)
[2016-12-08] MEDS: SENNOSIDES/DOCUSATE 8.6/50MG TABLET. PO SCH ×2 (11:24→21:00)
--- NOTE | 2016-12-08 12:56 | PDOC ---
PROGRESS NOTES Chief Complaint Chief Complaint unsteady gait, CT neg for stroke dm2 on po meds htn morbid obesity hypokalemia hypomagnesemia stable chronic diastolic CHF PAFIB on warfarin PPM constipation PLAN: FU WITH card, neuro MRI brain today on warfarin, INR daily on ASA 325mg daily need to double check with neuro PTOT cont home meds, ssi add stool softner replete K, Mag History of Present Illness History of Present Illness ROS: no fever, chills, sob or chest pain feel unsteady gait, no ext weakness no speech or swallow problem low k, low Mag Vitals Vitals Vital Signs Date Time Temp Pulse Resp B/P (MAP) Pulse Ox O2 Delivery O2 Flow Rate FiO2 12/08/16 10:40 98.1 70 18 151/72 (98) 97 Nasal Cannula 2.0 98.1 Physical Exam Physical Exam no ext weakness, rapid hand rotating test and finger-nose test ok General: Alert, Oriented X3, Cooperative, No acute distress Heart: Regular rate, Normal S1, Normal S2 Lungs: Clear Abdomen: Normal bowel sounds, Soft Extremities: No clubbing, No edema, Normal pulses Skin: No breakdown, No significant lesion Labs LABS Laboratory Tests Test 12/07/16 17:36 12/07/16 20:56 12/08/16 04:15 12/08/16 06:59 Glucose (Fingerstick) 94 mg/dL (70-99) 149 mg/dL (70-99) 121 mg/dL (70-99) White Blood Count 7.6 x10^3/uL (4.0-11.0) Red Blood Count 3.92 x10^6/uL (4.30-5.70) Hemoglobin 10.7 g/dL (13.0-17.5) Hematocrit 33.3 % (39.0-53.0) Mean Corpuscular Volume 85 fL (79-100) Mean Corpuscular Hemoglobin 27 pg (25-35) Mean Corpuscular Hemoglobin Concent 32 g/dL (31-37) Red Cell Distribution Width 17.2 % (11.5-14.5) Platelet Count 269 x10^3/uL (140-400) Neutrophils (%) (Auto) 64 % (31-73) Lymphocytes (%) (Auto) 26 % (24-48) Monocytes (%) (Auto) 7 % (0-9) Eosinophils (%) (Auto) 2 % (0-3) Basophils (%) (Auto) 1 % (0-3) Neutrophils # (Auto) 4.9 x10^3uL (1.8-7.7) Lymphocytes # (Auto) 2.0 x10^3/uL (1.0-4.8) Monocytes # (Auto) 0.5 x10^3/uL (0.0-1.1) Eosinophils # (Auto) 0.2 x10^3/uL (0.0-0.7) Basophils # (Auto) 0.0 x10^3/uL (0.0-0.2) Prothrombin Time 23.6 SEC (11.7-14.0) Prothromb Time International Ratio 2.3 (0.8-1.1) Sodium Level 144 mmol/L (136-145) Potassium Level 3.1 mmol/L (3.5-5.1) Chloride Level 103 mmol/L (98-107) Carbon Dioxide Level 33 mmol/L (21-32) Anion Gap 8 (6-14) Blood Urea Nitrogen 9 mg/dL (8-26) Creatinine 1.5 mg/dL (0.7-1.3) Estimated GFR (Cockcroft-Gault) 55.5 Glucose Level 113 mg/dL (70-99) Calcium Level 8.8 mg/dL (8.5-10.1) Magnesium Level 1.6 mg/dL (1.8-2.4) Triglycerides Level 99 mg/dL (0-150) Cholesterol Level 114 mg/dL (0-200) LDL Cholesterol, Calculated 53 mg/dL (0-100) VLDL Cholesterol, Calculated 20 mg/dL (0-40) Non-HDL Cholesterol Calculated 73 mg/dL (0-129) HDL Cholesterol 41 mg/dL (40-60) Cholesterol/HDL Ratio 2.8 Thyroid Stimulating Hormone (TSH) 2.590 uIU/mL (0.358-3.74) Test 12/08/16 11:56 Glucose (Fingerstick) 176 mg/dL (70-99) Assessment and Plan Assessmemt and Plan Problems Medical Problems: (1) Cerebellar infarct Status: Acute Problems: Comment Review of Relevant I have reviewed the following items glenis (where applicable) has been applied. Labs Laboratory Tests Test 12/07/16 08:50 12/07/16 09:15 12/07/16 17:36 12/07/16 20:56 White Blood Count 7.9 x10^3/uL (4.0-11.0) Red Blood Count 4.25 x10^6/uL (4.30-5.70) Hemoglobin 11.6 g/dL (13.0-17.5) Hematocrit 36.1 % (39.0-53.0) Mean Corpuscular Volume 85 fL (79-100) Mean Corpuscular Hemoglobin 27 pg (25-35) Mean Corpuscular Hemoglobin Concent 32 g/dL (31-37) Red Cell Distribution Width 17.3 % (11.5-14.5) Platelet Count 286 x10^3/uL (140-400) Neutrophils (%) (Auto) 74 % (31-73) Lymphocytes (%) (Auto) 20 % (24-48) Monocytes (%) (Auto) 5 % (0-9) Eosinophils (%) (Auto) 1 % (0-3) Basophils (%) (Auto) 1 % (0-3) Neutrophils # (Auto) 5.8 x10^3uL (1.8-7.7) Lymphocytes # (Auto) 1.6 x10^3/uL (1.0-4.8) Monocytes # (Auto) 0.4 x10^3/uL (0.0-1.1) Eosinophils # (Auto) 0.1 x10^3/uL (0.0-0.7) Basophils # (Auto) 0.0 x10^3/uL (0.0-0.2) Prothrombin Time 26.3 SEC (11.7-14.0) Prothromb Time International Ratio 2.6 (0.8-1.1) Sodium Level 143 mmol/L (136-145) Potassium Level 3.0 mmol/L (3.5-5.1) Chloride Level 102 mmol/L (98-107) Carbon Dioxide Level 31 mmol/L (21-32) Anion Gap 10 (6-14) Blood Urea Nitrogen 5 mg/dL (8-26) Creatinine 1.4 mg/dL (0.7-1.3) Estimated GFR (Cockcroft-Gault) 60.1 BUN/Creatinine Ratio 4 (6-20) Glucose Level 152 mg/dL (70-99) Calcium Level 9.5 mg/dL (8.5-10.1) Total Bilirubin 0.4 mg/dL (0.2-1.0) Aspartate Amino Transf (AST/SGOT) 24 U/L (15-37) Alanine Aminotransferase (ALT/SGPT) 25 U/L (16-63) Alkaline Phosphatase 171 U/L (46-116) Troponin I Quantitative < 0.017 ng/mL (0.000-0.055) Total Protein 8.6 g/dL (6.4-8.2) Albumin 3.9 g/dL (3.4-5.0) Albumin/Globulin Ratio 0.8 (1.0-1.7) Urine Collection Type Unknown Urine Color Yellow Urine Clarity Clear Urine pH 7.5 Urine Specific [place] 1.010 Urine Protein 30 mg/dL (NEG-TRACE) Urine Glucose (UA) Negative mg/dL (NEG) Urine Ketones (Stick) Negative mg/dL (NEG) Urine Blood Negative (NEG) Urine Nitrite Negative (NEG) Urine Bilirubin Negative (NEG) Urine Urobilinogen Dipstick 0.2 mg/dL (0.2 mg/dL) Urine Leukocyte Esterase Negative (NEG) Urine RBC 1-2 /HPF (0-2) Urine WBC 0 /HPF (0-4) Urine Squamous Epithelial Cells Occ /LPF Urine Bacteria 0 /HPF (0-FEW) Glucose (Fingerstick) 94 mg/dL (70-99) 149 mg/dL (70-99) Test 12/08/16 04:15 12/08/16 06:59 12/08/16 11:56 White Blood Count 7.6 x10^3/uL (4.0-11.0) Red Blood Count 3.92 x10^6/uL (4.30-5.70) Hemoglobin 10.7 g/dL (13.0-17.5) Hematocrit 33.3 % (39.0-53.0) Mean Corpuscular Volume 85 fL (79-100) Mean Corpuscular Hemoglobin 27 pg (25-35) Mean Corpuscular Hemoglobin Concent 32 g/dL (31-37) Red Cell Distribution Width 17.2 % (11.5-14.5) Platelet Count 269 x10^3/uL (140-400) Neutrophils (%) (Auto) 64 % (31-73) Lymphocytes (%) (Auto) 26 % (24-48) Monocytes (%) (Auto) 7 % (0-9) Eosinophils (%) (Auto) 2 % (0-3) Basophils (%) (Auto) 1 % (0-3) Neutrophils # (Auto) 4.9 x10^3uL (1.8-7.7) Lymphocytes # (Auto) 2.0 x10^3/uL (1.0-4.8) Monocytes # (Auto) 0.5 x10^3/uL (0.0-1.1) Eosinophils # (Auto) 0.2 x10^3/uL (0.0-0.7) Basophils # (Auto) 0.0 x10^3/uL (0.0-0.2) Prothrombin Time 23.6 SEC (11.7-14.0) Prothromb Time International Ratio 2.3 (0.8-1.1) Sodium Level 144 mmol/L (136-145) Potassium Level 3.1 mmol/L (3.5-5.1) Chloride Level 103 mmol/L (98-107) Carbon Dioxide Level 33 mmol/L (21-32) Anion Gap 8 (6-14) Blood Urea Nitrogen 9 mg/dL (8-26) Creatinine 1.5 mg/dL (0.7-1.3) Estimated GFR (Cockcroft-Gault) 55.5 Glucose Level 113 mg/dL (70-99) Calcium Level 8.8 mg/dL (8.5-10.1) Magnesium Level 1.6 mg/dL (1.8-2.4) Triglycerides Level 99 mg/dL (0-150) Cholesterol Level 114 mg/dL (0-200) LDL Cholesterol, Calculated 53 mg/dL (0-100) VLDL Cholesterol, Calculated 20 mg/dL (0-40) Non-HDL Cholesterol Calculated 73 mg/dL (0-129) HDL Cholesterol 41 mg/dL (40-60) Cholesterol/HDL Ratio 2.8 Thyroid Stimulating Hormone (TSH) 2.590 uIU/mL (0.358-3.74) Glucose (Fingerstick) 121 mg/dL (70-99) 176 mg/dL (70-99) Laboratory Tests Test 12/07/16 17:36 12/07/16 20:56 12/08/16 04:15 12/08/16 06:59 Glucose (Fingerstick) 94 mg/dL (70-99) 149 mg/dL (70-99) 121 mg/dL (70-99) White Blood Count 7.6 x10^3/uL (4.0-11.0) Red Blood Count 3.92 x10^6/uL (4.30-5.70) Hemoglobin 10.7 g/dL (13.0-17.5) Hematocrit 33.3 % (39.0-53.0) Mean Corpuscular Volume 85 fL (79-100) Mean Corpuscular Hemoglobin 27 pg (25-35) Mean Corpuscular Hemoglobin Concent 32 g/dL (31-37) Red Cell Distribution Width 17.2 % (11.5-14.5) Platelet Count 269 x10^3/uL (140-400) Neutrophils (%) (Auto) 64 % (31-73) Lymphocytes (%) (Auto) 26 % (24-48) Monocytes (%) (Auto) 7 % (0-9) Eosinophils (%) (Auto) 2 % (0-3) Basophils (%) (Auto) 1 % (0-3) Neutrophils # (Auto) 4.9 x10^3uL (1.8-7.7) Lymphocytes # (Auto) 2.0 x10^3/uL (1.0-4.8) Monocytes # (Auto) 0.5 x10^3/uL (0.0-1.1) Eosinophils # (Auto) 0.2 x10^3/uL (0.0-0.7) Basophils # (Auto) 0.0 x10^3/uL (0.0-0.2) Prothrombin Time 23.6 SEC (11.7-14.0) Prothromb Time International Ratio 2.3 (0.8-1.1) Sodium Level 144 mmol/L (136-145) Potassium Level 3.1 mmol/L (3.5-5.1) Chloride Level 103 mmol/L (98-107) Carbon Dioxide Level 33 mmol/L (21-32) Anion Gap 8 (6-14) Blood Urea Nitrogen 9 mg/dL (8-26) Creatinine 1.5 mg/dL (0.7-1.3) Estimated GFR (Cockcroft-Gault) 55.5 Glucose Level 113 mg/dL (70-99) Calcium Level 8.8 mg/dL (8.5-10.1) Magnesium Level 1.6 mg/dL (1.8-2.4) Triglycerides Level 99 mg/dL (0-150) Cholesterol Level 114 mg/dL (0-200) LDL Cholesterol, Calculated 53 mg/dL (0-100) VLDL Cholesterol, Calculated 20 mg/dL (0-40) Non-HDL Cholesterol Calculated 73 mg/dL (0-129) HDL Cholesterol 41 mg/dL (40-60) Cholesterol/HDL Ratio 2.8 Thyroid Stimulating Hormone (TSH) 2.590 uIU/mL (0.358-3.74) Test 12/08/16 11:56 Glucose (Fingerstick) 176 mg/dL (70-99) Medications Current Medications Iohexol (Omnipaque 300 Mg/ml) 75 ml 1X ONCE IV Last administered on 12/07/16 10:15; Start 12/07/16 at 09:30; Stop 12/07/16 at 09:31; Status DC Info (Do NOT chart on this entry -- for MONITORING) 1 each PRN DAILY PRN MC SEE COMMENTS; Start 12/07/16 at 09:30; Stop 12/09/16 at 09:29 Iohexol (Omnipaque 300 Mg/ml) 75 ml STK-MED ONCE .ROUTE ; Start 12/07/16 at 09:53 ; Stop 12/07/16 at 09:54; Status DC Ondansetron HCl (Zofran) 4 mg PRN Q8HRS PRN IV NAUSEA/VOMITING; Start 12/07/16 at 12:30; Stop 12/08/16 at 12:29; Status DC Morphine Sulfate 4 mg PRN Q2HR PRN IV PAIN; Start 12/07/16 at 12:30; Stop at 12:29; Status DC Potassium Chloride (Klor-Con) 40 meq 1X ONCE PO Last administered on 12/07/16 17:38; Start 12/07/16 at 15:30; Stop 12/07/16 at 15:40; Status DC Potassium Chloride (Klor-Con) 20 meq DAILYWBKFT PO Last administered on 08:26; Start 12/08/16 at 08:00 Allopurinol (Zyloprim) 300 mg DAILY PO Last administered on 12/08/16 08:26; Start 12/08/16 at 09:00 Atorvastatin Calcium (Lipitor) 40 mg QHS PO Last administered on 12/07/16 20:51 ; Start 12/07/16 at 21:00 Docusate Sodium (Colace) 100 mg PRN BID PRN PO CONSTIPATION; Start 12/07/16 at 15:30 Doxazosin Mesylate (Cardura) 4 mg DAILY PO Last administered on 12/08/16 08:27 ; Start 12/08/16 at 09:00 Furosemide (Lasix) 40 mg DAILY PO Last administered on 12/08/16 08:26; Start at 09:00 Acetaminophen/ Hydrocodone Bitart (Lortab 7.5/325) 1 tab PRN Q6HRS PRN PO PAIN ; Start 12/07/16 at 15:30 Levothyroxine Sodium (Synthroid) 75 mcg DAILY07 PO Last administered on 06:28; Start 12/08/16 at 07:00 Warfarin Sodium (Coumadin) 4 mg SuMoTuThFr PO ; Start 12/08/16 at 16:00 Warfarin Sodium (Coumadin) 6 mg WeSa PO ; Start 12/10/16 at 16:00 Carvedilol (Coreg) 25 mg BIDWMEALS PO Last administered on 12/08/16 08:27; Start 12/07/16 at 17:00 Glimepiride (Amaryl) 1 mg DAILY PO Last administered on 12/08/16 08:27; Start 12/08/16 at 09:00 Aspirin (Kailyn Aspirin) 325 mg DAILYWBKFT PO Last administered on 12/08/16 08: 26; Start 12/08/16 at 08:00 Warfarin Sodium (Coumadin Per Physician) 1 each PRN DAILY PRN MC SEE COMMENTS; Start 12/08/16 at 07:45 Potassium Chloride (Klor-Con) 40 meq 1X ONCE PO Last administered on 12/08/16 11:24; Start 12/08/16 at 09:45; Stop 12/08/16 at 09:50; Status DC Magnesium Sulfate/ Dextrose 50 ml @ 25 mls/hr 1X ONCE IV Last administered on 12/08/16 11:25; Start 12/08/16 at 10:00; Stop 12/08/16 at 11:59; Status DC Senna/Docusate Sodium (Senna Plus) 1 tab BID PO Last administered on 12/08/16 11:24; Start 12/08/16 at 11:30 Docusate Sodium (Colace) 100 mg BID PO Last administered on 12/08/16 11:24; Start 12/08/16 at 11:30 Magnesium Hydroxide (Milk Of Magnesia) 2,400 mg PRN Q12HR PRN PO CONSTIPATION; Start 12/08/16 at 11:15 Active Scripts Active Colace (Docusate Sodium) 100 Mg Capsule 100 Cap PO PRN BID PRN Reported Potassium Chloride 20 Meq Tablet.er 20 Meq PO DAILY Furosemide 40 Mg Tablet 40 Mg PO DAILY Atorvastatin Calcium 40 Mg Tablet 40 Mg PO DAILY Synthroid (Levothyroxine Sodium) 75 Mcg Tablet 75 Mcg PO DAILYAC Hydrocodone-Apap 7.5-325 (Hydrocodone Bit/Acetaminophen) 1 Each Tablet 1 Tab PO PRN Q6HRS PRN Warfarin Sodium 4 Mg Tablet 4 Mg PO DAILY 4 mg Sun, Mon, , , Monday Coumadin (Warfarin Sodium) 6 Mg Tablet 6 Mg PO DAILY 6 mg Monday and Monday Carvedilol 25 Mg Tablet 25 Mg PO BIDWMEALS Aspirin 81 Mg Tab.chew 1 Tab PO BID Iron 100 Plus Tablet (Iron,Carbonyl/Vit C/Vit B12/Fa) 1 Each Tablet 1 Each PO Allopurinol 300 Mg Tablet 1 Tab PO DAILY Glimepiride 1 Mg Tablet 1 Tab PO DAILY Doxazosin Mesylate 4 Mg Tablet 1 Tab PO DAILY Vitals/I & O Vital Sign - Last 24 Hours 12/07/16 12/07/16 12/07/16 12/07/16 14:15 14:15 15:36 17:39 Temp 97.8 97.8 97.8 97.8 Pulse 72 72 72 Resp 20 20 B/P (MAP) 171/89 (116) 171/89 (116) 171/89 Pulse Ox 94 94 O2 Delivery Room Air Room Air Room Air 12/07/16 12/07/16 12/07/16 12/08/16 19:59 20:00 23:50 03:47 Temp 98.8 99.0 99.0 98.8 99.0 99.0 Pulse 70 73 71 Resp 18 18 18 B/P (MAP) 134/81 (98) 133/87 (102) 133/88 (103) Pulse Ox 92 97 97 O2 Delivery Room Air Room Air Nasal Cannula Nasal Cannula O2 Flow Rate 2.0 2.0 12/08/16 12/08/16 12/08/16 12/08/16 07:00 08:27 08:27 10:40 Temp 97.9 98.1 97.9 98.1 Pulse 70 70 70 70 Resp 18 18 B/P (MAP) 154/85 (108) 154/85 154/85 151/72 (98) Pulse Ox 96 97 O2 Delivery Nasal Cannula Nasal Cannula O2 Flow Rate 2.0 2.0 Intake and Output 12/08/16 12/08/16 12/09/16 15:00 23:00 07:00 Intake Total 180 ml Balance 180 ml LI ZAMORA MD Dec 08, 2016 12:56
[2016-12-08] MEDS ORDERED: DEXTROSE 50% 25 GM / 50ML DISP.SYRIN. IV PRN (13:00)
[2016-12-08] MEDS ORDERED: ONDANSETRON PF 4 MG/2 ML VIAL. IV PRN (13:00)
[2016-12-08] MEDS ORDERED: ACETAMINOPHEN 325 MG TABLET. PO PRN (13:00)
[2016-12-08] MEDS ORDERED: DOCUSATE SODIUM 100 MG CAPSULE. PO PRN (13:00)
[2016-12-08] MEDS ORDERED: hydrALAZINE 20 MG/ML VIAL. IVP PRN (13:00)
[2016-12-08] MEDS ORDERED: traMADol 50 MG TABLET PO PRN (13:00)
[2016-12-08] MEDS ORDERED: MORPHINE SULFATE 2 MG/ML DISP.SYRIN. IV PRN (13:00)
[2016-12-08 14:45] VITALS: BP 144/80
--- NOTE | 2016-12-08 14:47 | PDOC ---
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 Aspirin and Coumadin Risks may outweigh benefits of continued anticoagulation, patient instructed to follow-up with his diploma medical assistant, Dr. Contreras Aim for discharge tomorrow depending on MRI results. Subjective Feels much better Objective Vital Signs Date Time Temp Pulse Resp B/P (MAP) Pulse Ox O2 Delivery O2 Flow Rate FiO2 12/08/16 10:40 98.1 70 18 151/72 (98) 97 Nasal Cannula 2.0 98.1 Intake and Output 12/09/16 07:00 Intake Total 420 ml Balance 420 ml Intake Oral 420 ml PHYSICAL EXAM Alert. Oriented to time, place and person. PERRL. EOMI. CN: no focal findings. No nystagmus elicited Muscle tone: normal. Muscle strength: 5/5 DTR: 0-1 + Plantar reflex: Flexor Gait: Apraxic, better than yesterday. Sensory exam: Stocking sensory loss No cerebellar signs elicited. Review of Relevant I have reviewed the following items glenis (where applicable) has been applied. Labs Laboratory Tests Test 12/07/16 08:50 12/07/16 09:15 12/07/16 17:36 12/07/16 20:56 White Blood Count 7.9 x10^3/uL (4.0-11.0) Red Blood Count 4.25 x10^6/uL (4.30-5.70) Hemoglobin 11.6 g/dL (13.0-17.5) Hematocrit 36.1 % (39.0-53.0) Mean Corpuscular Volume 85 fL (79-100) Mean Corpuscular Hemoglobin 27 pg (25-35) Mean Corpuscular Hemoglobin Concent 32 g/dL (31-37) Red Cell Distribution Width 17.3 % (11.5-14.5) Platelet Count 286 x10^3/uL (140-400) Neutrophils (%) (Auto) 74 % (31-73) Lymphocytes (%) (Auto) 20 % (24-48) Monocytes (%) (Auto) 5 % (0-9) Eosinophils (%) (Auto) 1 % (0-3) Basophils (%) (Auto) 1 % (0-3) Neutrophils # (Auto) 5.8 x10^3uL (1.8-7.7) Lymphocytes # (Auto) 1.6 x10^3/uL (1.0-4.8) Monocytes # (Auto) 0.4 x10^3/uL (0.0-1.1) Eosinophils # (Auto) 0.1 x10^3/uL (0.0-0.7) Basophils # (Auto) 0.0 x10^3/uL (0.0-0.2) Prothrombin Time 26.3 SEC (11.7-14.0) Prothromb Time International Ratio 2.6 (0.8-1.1) Sodium Level 143 mmol/L (136-145) Potassium Level 3.0 mmol/L (3.5-5.1) Chloride Level 102 mmol/L (98-107) Carbon Dioxide Level 31 mmol/L (21-32) Anion Gap 10 (6-14) Blood Urea Nitrogen 5 mg/dL (8-26) Creatinine 1.4 mg/dL (0.7-1.3) Estimated GFR (Cockcroft-Gault) 60.1 BUN/Creatinine Ratio 4 (6-20) Glucose Level 152 mg/dL (70-99) Calcium Level 9.5 mg/dL (8.5-10.1) Total Bilirubin 0.4 mg/dL (0.2-1.0) Aspartate Amino Transf (AST/SGOT) 24 U/L (15-37) Alanine Aminotransferase (ALT/SGPT) 25 U/L (16-63) Alkaline Phosphatase 171 U/L (46-116) Troponin I Quantitative < 0.017 ng/mL (0.000-0.055) Total Protein 8.6 g/dL (6.4-8.2) Albumin 3.9 g/dL (3.4-5.0) Albumin/Globulin Ratio 0.8 (1.0-1.7) Urine Collection Type Unknown Urine Color Yellow Urine Clarity Clear Urine pH 7.5 Urine Specific [place] 1.010 Urine Protein 30 mg/dL (NEG-TRACE) Urine Glucose (UA) Negative mg/dL (NEG) Urine Ketones (Stick) Negative mg/dL (NEG) Urine Blood Negative (NEG) Urine Nitrite Negative (NEG) Urine Bilirubin Negative (NEG) Urine Urobilinogen Dipstick 0.2 mg/dL (0.2 mg/dL) Urine Leukocyte Esterase Negative (NEG) Urine RBC 1-2 /HPF (0-2) Urine WBC 0 /HPF (0-4) Urine Squamous Epithelial Cells Occ /LPF Urine Bacteria 0 /HPF (0-FEW) Glucose (Fingerstick) 94 mg/dL (70-99) 149 mg/dL (70-99) Test 12/08/16 04:15 12/08/16 06:59 12/08/16 11:56 White Blood Count 7.6 x10^3/uL (4.0-11.0) Red Blood Count 3.92 x10^6/uL (4.30-5.70) Hemoglobin 10.7 g/dL (13.0-17.5) Hematocrit 33.3 % (39.0-53.0) Mean Corpuscular Volume 85 fL (79-100) Mean Corpuscular Hemoglobin 27 pg (25-35) Mean Corpuscular Hemoglobin Concent 32 g/dL (31-37) Red Cell Distribution Width 17.2 % (11.5-14.5) Platelet Count 269 x10^3/uL (140-400) Neutrophils (%) (Auto) 64 % (31-73) Lymphocytes (%) (Auto) 26 % (24-48) Monocytes (%) (Auto) 7 % (0-9) Eosinophils (%) (Auto) 2 % (0-3) Basophils (%) (Auto) 1 % (0-3) Neutrophils # (Auto) 4.9 x10^3uL (1.8-7.7) Lymphocytes # (Auto) 2.0 x10^3/uL (1.0-4.8) Monocytes # (Auto) 0.5 x10^3/uL (0.0-1.1) Eosinophils # (Auto) 0.2 x10^3/uL (0.0-0.7) Basophils # (Auto) 0.0 x10^3/uL (0.0-0.2) Prothrombin Time 23.6 SEC (11.7-14.0) Prothromb Time International Ratio 2.3 (0.8-1.1) Sodium Level 144 mmol/L (136-145) Potassium Level 3.1 mmol/L (3.5-5.1) Chloride Level 103 mmol/L (98-107) Carbon Dioxide Level 33 mmol/L (21-32) Anion Gap 8 (6-14) Blood Urea Nitrogen 9 mg/dL (8-26) Creatinine 1.5 mg/dL (0.7-1.3) Estimated GFR (Cockcroft-Gault) 55.5 Glucose Level 113 mg/dL (70-99) Calcium Level 8.8 mg/dL (8.5-10.1) Magnesium Level 1.6 mg/dL (1.8-2.4) Triglycerides Level 99 mg/dL (0-150) Cholesterol Level 114 mg/dL (0-200) LDL Cholesterol, Calculated 53 mg/dL (0-100) VLDL Cholesterol, Calculated 20 mg/dL (0-40) Non-HDL Cholesterol Calculated 73 mg/dL (0-129) HDL Cholesterol 41 mg/dL (40-60) Cholesterol/HDL Ratio 2.8 Thyroid Stimulating Hormone (TSH) 2.590 uIU/mL (0.358-3.74) Glucose (Fingerstick) 121 mg/dL (70-99) 176 mg/dL (70-99) Laboratory Tests Test 12/07/16 17:36 12/07/16 20:56 12/08/16 04:15 12/08/16 06:59 Glucose (Fingerstick) 94 mg/dL (70-99) 149 mg/dL (70-99) 121 mg/dL (70-99) White Blood Count 7.6 x10^3/uL (4.0-11.0) Red Blood Count 3.92 x10^6/uL (4.30-5.70) Hemoglobin 10.7 g/dL (13.0-17.5) Hematocrit 33.3 % (39.0-53.0) Mean Corpuscular Volume 85 fL (79-100) Mean Corpuscular Hemoglobin 27 pg (25-35) Mean Corpuscular Hemoglobin Concent 32 g/dL (31-37) Red Cell Distribution Width 17.2 % (11.5-14.5) Platelet Count 269 x10^3/uL (140-400) Neutrophils (%) (Auto) 64 % (31-73) Lymphocytes (%) (Auto) 26 % (24-48) Monocytes (%) (Auto) 7 % (0-9) Eosinophils (%) (Auto) 2 % (0-3) Basophils (%) (Auto) 1 % (0-3) Neutrophils # (Auto) 4.9 x10^3uL (1.8-7.7) Lymphocytes # (Auto) 2.0 x10^3/uL (1.0-4.8) Monocytes # (Auto) 0.5 x10^3/uL (0.0-1.1) Eosinophils # (Auto) 0.2 x10^3/uL (0.0-0.7) Basophils # (Auto) 0.0 x10^3/uL (0.0-0.2) Prothrombin Time 23.6 SEC (11.7-14.0) Prothromb Time International Ratio 2.3 (0.8-1.1) Sodium Level 144 mmol/L (136-145) Potassium Level 3.1 mmol/L (3.5-5.1) Chloride Level 103 mmol/L (98-107) Carbon Dioxide Level 33 mmol/L (21-32) Anion Gap 8 (6-14) Blood Urea Nitrogen 9 mg/dL (8-26) Creatinine 1.5 mg/dL (0.7-1.3) Estimated GFR (Cockcroft-Gault) 55.5 Glucose Level 113 mg/dL (70-99) Calcium Level 8.8 mg/dL (8.5-10.1) Magnesium Level 1.6 mg/dL (1.8-2.4) Triglycerides Level 99 mg/dL (0-150) Cholesterol Level 114 mg/dL (0-200) LDL Cholesterol, Calculated 53 mg/dL (0-100) VLDL Cholesterol, Calculated 20 mg/dL (0-40) Non-HDL Cholesterol Calculated 73 mg/dL (0-129) HDL Cholesterol 41 mg/dL (40-60) Cholesterol/HDL Ratio 2.8 Thyroid Stimulating Hormone (TSH) 2.590 uIU/mL (0.358-3.74) Test 12/08/16 11:56 Glucose (Fingerstick) 176 mg/dL (70-99) Medications Current Medications Iohexol (Omnipaque 300 Mg/ml) 75 ml 1X ONCE IV Last administered on 12/07/16 10:15; Start 12/07/16 at 09:30; Stop 12/07/16 at 09:31; Status DC Info (Do NOT chart on this entry -- for MONITORING) 1 each PRN DAILY PRN MC SEE COMMENTS; Start 12/07/16 at 09:30; Stop 12/09/16 at 09:29 Iohexol (Omnipaque 300 Mg/ml) 75 ml STK-MED ONCE .ROUTE ; Start 12/07/16 at 09:53 ; Stop 12/07/16 at 09:54; Status DC Ondansetron HCl (Zofran) 4 mg PRN Q8HRS PRN IV NAUSEA/VOMITING; Start 12/07/16 at 12:30; Stop 12/08/16 at 12:29; Status DC Morphine Sulfate 4 mg PRN Q2HR PRN IV PAIN; Start 12/07/16 at 12:30; Stop at 12:29; Status DC Potassium Chloride (Klor-Con) 40 meq 1X ONCE PO Last administered on 12/07/16 17:38; Start 12/07/16 at 15:30; Stop 12/07/16 at 15:40; Status DC Potassium Chloride (Klor-Con) 20 meq DAILYWBKFT PO Last administered on 08:26; Start 12/08/16 at 08:00 Allopurinol (Zyloprim) 300 mg DAILY PO Last administered on 12/08/16 08:26; Start 12/08/16 at 09:00 Atorvastatin Calcium (Lipitor) 40 mg QHS PO Last administered on 12/07/16 20:51 ; Start 12/07/16 at 21:00 Docusate Sodium (Colace) 100 mg PRN BID PRN PO CONSTIPATION; Start 12/07/16 at 15:30 Doxazosin Mesylate (Cardura) 4 mg DAILY PO Last administered on 12/08/16 08:27 ; Start 12/08/16 at 09:00 Furosemide (Lasix) 40 mg DAILY PO Last administered on 12/08/16 08:26; Start at 09:00 Acetaminophen/ Hydrocodone Bitart (Lortab 7.5/325) 1 tab PRN Q6HRS PRN PO PAIN ; Start 12/07/16 at 15:30 Levothyroxine Sodium (Synthroid) 75 mcg DAILY07 PO Last administered on 06:28; Start 12/08/16 at 07:00 Warfarin Sodium (Coumadin) 4 mg SuMoTuThFr PO ; Start 12/08/16 at 16:00 Warfarin Sodium (Coumadin) 6 mg WeSa PO ; Start 12/10/16 at 16:00 Carvedilol (Coreg) 25 mg BIDWMEALS PO Last administered on 12/08/16 08:27; Start 12/07/16 at 17:00 Glimepiride (Amaryl) 1 mg DAILY PO Last administered on 12/08/16 08:27; Start 12/08/16 at 09:00 Aspirin (Kailyn Aspirin) 325 mg DAILYWBKFT PO Last administered on 12/08/16 08: 26; Start 12/08/16 at 08:00 Warfarin Sodium (Coumadin Per Physician) 1 each PRN DAILY PRN MC SEE COMMENTS Last administered on 12/08/16 14:37; Start 12/08/16 at 07:45 Potassium Chloride (Klor-Con) 40 meq 1X ONCE PO Last administered on 12/08/16 11:24; Start 12/08/16 at 09:45; Stop 12/08/16 at 09:50; Status DC Magnesium Sulfate/ Dextrose 50 ml @ 25 mls/hr 1X ONCE IV Last administered on 12/08/16 11:25; Start 12/08/16 at 10:00; Stop 12/08/16 at 11:59; Status DC Senna/Docusate Sodium (Senna Plus) 1 tab BID PO Last administered on 12/08/16 11:24; Start 12/08/16 at 11:30 Docusate Sodium (Colace) 100 mg BID PO Last administered on 12/08/16 11:24; Start 12/08/16 at 11:30 Magnesium Hydroxide (Milk Of Magnesia) 2,400 mg PRN Q12HR PRN PO CONSTIPATION; Start 12/08/16 at 11:15 Insulin Aspart (NovoLOG) 0-9 UNITS TIDWMEALS SQ ; Start 12/08/16 at 17:00 Dextrose (Dextrose 50%-Water Syringe) 12.5 gm PRN Q15MIN PRN IV SEE COMMENTS; Start 12/08/16 at 13:00 Acetaminophen (Tylenol) 650 mg PRN Q6HRS PRN PO FEVER; Start 12/08/16 at 13:00 Ondansetron HCl (Zofran) 4 mg PRN Q6HRS PRN IV NAUSEA/VOMITING; Start 12/08/16 at 13:00 Morphine Sulfate 2 mg PRN Q2HR PRN IV PAIN; Start 12/08/16 at 13:00 Tramadol HCl (Ultram) 50 mg PRN Q6HRS PRN PO PAIN; Start 12/08/16 at 13:00 Hydralazine HCl (Apresoline) 10 mg PRN Q4HRS PRN IVP ELEVATED BP, SEE COMMENTS ; Start 12/08/16 at 13:00 Docusate Sodium (Colace) 100 mg PRN DAILY PRN PO CONSTIPATION; Start 12/08/16 at 13:00 Active Scripts Active Colace (Docusate Sodium) 100 Mg Capsule 100 Cap PO PRN BID PRN Reported Potassium Chloride 20 Meq Tablet.er 20 Meq PO DAILY Furosemide 40 Mg Tablet 40 Mg PO DAILY Atorvastatin Calcium 40 Mg Tablet 40 Mg PO DAILY Synthroid (Levothyroxine Sodium) 75 Mcg Tablet 75 Mcg PO DAILYAC Hydrocodone-Apap 7.5-325 (Hydrocodone Bit/Acetaminophen) 1 Each Tablet 1 Tab PO PRN Q6HRS PRN Warfarin Sodium 4 Mg Tablet 4 Mg PO DAILY 4 mg Sun, Mon, , , Monday Coumadin (Warfarin Sodium) 6 Mg Tablet 6 Mg PO DAILY 6 mg Monday and Monday Carvedilol 25 Mg Tablet 25 Mg PO BIDWMEALS Aspirin 81 Mg Tab.chew 1 Tab PO BID Iron 100 Plus Tablet (Iron,Carbonyl/Vit C/Vit B12/Fa) 1 Each Tablet 1 Each PO Allopurinol 300 Mg Tablet 1 Tab PO DAILY Glimepiride 1 Mg Tablet 1 Tab PO DAILY Doxazosin Mesylate 4 Mg Tablet 1 Tab PO DAILY Vitals/I & O Vital Sign - Last 24 Hours 12/07/16 12/07/16 12/07/16 12/07/16 15:36 17:39 19:59 20:00 Temp 98.8 98.8 Pulse 72 70 Resp 18 B/P (MAP) 171/89 134/81 (98) Pulse Ox 92 O2 Delivery Room Air Room Air Room Air 12/07/16 12/08/16 12/08/16 12/08/16 23:50 03:47 07:00 08:27 Temp 99.0 99.0 97.9 99.0 99.0 97.9 Pulse 73 71 70 70 Resp 18 18 18 B/P (MAP) 133/87 (102) 133/88 (103) 154/85 (108) 154/85 Pulse Ox 97 97 96 O2 Delivery Nasal Cannula Nasal Cannula Nasal Cannula O2 Flow Rate 2.0 2.0 2.0 12/08/16 12/08/16 08:27 10:40 Temp 98.1 98.1 Pulse 70 70 Resp 18 B/P (MAP) 154/85 151/72 (98) Pulse Ox 97 O2 Delivery Nasal Cannula O2 Flow Rate 2.0 Intake and Output 12/08/16 12/08/16 12/09/16 15:00 23:00 07:00 Intake Total 420 ml Balance 420 ml CAREY PINA MD Dec 08, 2016 14:47
[2016-12-08] MEDS ORDERED: WARFARIN 4 MG TABLET. PO SCH (16:00)
[2016-12-08] MEDS: INSULIN ASPART 300 UNITS/3 ML INSULN.PEN SQ SCH (17:00)
[2016-12-08 19:21] VITALS: BP 151/75
[2016-12-08] MEDS: ATORVASTATIN CALCIUM 40 MG TABLET. PO SCH (21:17)
[2016-12-08 23:08] VITALS: BP 136/81
[2016-12-09 03:07] VITALS: BP 145/81
[2016-12-09] MEDS: LEVOTHYROXINE 75 MCG TABLET PO SCH (05:30)
[2016-12-09 05:44] LABS: BASO % 0 % (0-3); EOS % 1 % (0-3); HEMATOCRIT 34.3 % (39.0-53.0); HEMOGLOBIN 11.4 g/dL (13.0-17.5); LYMPH # 1.8 x10^3/uL (1.0-4.8); LYMPH % 22 % (24-48); MEAN CORPUSCULAR HEMOGLOBIN 28 pg (25-35); MEAN CORPUSCULAR HGB CONC 33 g/dL (31-37); MEAN CORPUSCULAR VOLUME 83 fL (79-100); MONO % 7 % (0-9); NEUT % 70 % (31-73); PLATELET COUNT 283 x10^3/uL (140-400); RED BLOOD COUNT 4.14 x10^6/uL (4.30-5.70); RED CELL DISTRIBUTION WIDTH 17.3 % (11.5-14.5); WHITE BLOOD COUNT 8.3 x10^3/uL (4.0-11.0)
[2016-12-09 05:58] LABS: CALCIUM 9.1 mg/dL (8.5-10.1); CREATININE 1.5 mg/dL (0.7-1.3); GFR 55.5
[2016-12-09 06:02] LABS: INR 1.8 (0.8-1.1); PROTHROMBIN TIME PATIENT 19.6 SEC (11.7-14.0)
[2016-12-09 07:11] VITALS: BP 147/81
[2016-12-09] MEDS: INSULIN ASPART 300 UNITS/3 ML INSULN.PEN SQ SCH (07:31)
[2016-12-09] MEDS: ASPIRIN 325 MG TABLET PO SCH (07:33)
[2016-12-09] MEDS: DOXAZOSIN MESYLATE 4 MG TABLET. PO SCH (07:34)
[2016-12-09] MEDS: ALLOPURINOL 300 MG TABLET. PO SCH (07:34)
[2016-12-09] MEDS: DOCUSATE SODIUM 100 MG CAPSULE. PO SCH (07:34)
[2016-12-09] MEDS: GLIMEPIRIDE 2 MG TABLET. PO SCH (07:34)
[2016-12-09] MEDS: SENNOSIDES/DOCUSATE 8.6/50MG TABLET. PO SCH (07:34)
[2016-12-09] MEDS: POTASSIUM CHLORIDE 20 MEQ TABLET.ER. PO SCH (07:35)
[2016-12-09] MEDS: CARVEDILOL 12.5 MG TABLET. PO SCH (07:35)
[2016-12-09] MEDS: FUROSEMIDE 40 MG TABLET. PO SCH (07:39)
[2016-12-09] MEDS ORDERED: POTASSIUM CHLORIDE 20 MEQ TABLET.ER. PO ONE (10:00)
[2016-12-09] MEDS ORDERED: POTA20TA4 PO (11:20)
[2016-12-09] MEDS ORDERED: ASPI325T8 PO (11:20)
[2016-12-09 11:33] VITALS: BP 160/78
--- NOTE | 2016-12-09 13:12 | PDOC ---
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 On warfarin, has atrial fibrillation Also was on aspirin at home Also is on a statin, cholesterol profile excellent here Plan Hold on echo. Aspirin and Coumadin With gait disorder, risks may outweigh benefits of continued anticoagulation, patient instructed to follow-up with his electrician radio, Dr. iDane Reilly for discharge F/U with Neurology as needed Subjective No complaints, says that his gait is much better. Objective Vital Signs Date Time Temp Pulse Resp B/P (MAP) Pulse Ox O2 Delivery O2 Flow Rate FiO2 12/09/16 11:33 98.2 70 15 160/78 (105) 98 Nasal Cannula 98.2 12/08/16 14:45 2.0 PHYSICAL EXAM Alert. Oriented to time, place and person. PERRL. EOMI. CN: no focal findings. No nystagmus elicited Muscle tone: normal. Muscle strength: 5/5 DTR: 0-1 + Plantar reflex: Flexor Gait: Apraxic, better than yesterday. Sensory exam: Stocking sensory loss No cerebellar signs elicited. Review of Relevant I have reviewed the following items glenis (where applicable) has been applied. Labs Laboratory Tests Test 12/07/16 17:36 12/07/16 20:56 12/08/16 04:15 12/08/16 06:59 Glucose (Fingerstick) 94 mg/dL (70-99) 149 mg/dL (70-99) 121 mg/dL (70-99) White Blood Count 7.6 x10^3/uL (4.0-11.0) Red Blood Count 3.92 x10^6/uL (4.30-5.70) Hemoglobin 10.7 g/dL (13.0-17.5) Hematocrit 33.3 % (39.0-53.0) Mean Corpuscular Volume 85 fL (79-100) Mean Corpuscular Hemoglobin 27 pg (25-35) Mean Corpuscular Hemoglobin Concent 32 g/dL (31-37) Red Cell Distribution Width 17.2 % (11.5-14.5) Platelet Count 269 x10^3/uL (140-400) Neutrophils (%) (Auto) 64 % (31-73) Lymphocytes (%) (Auto) 26 % (24-48) Monocytes (%) (Auto) 7 % (0-9) Eosinophils (%) (Auto) 2 % (0-3) Basophils (%) (Auto) 1 % (0-3) Neutrophils # (Auto) 4.9 x10^3uL (1.8-7.7) Lymphocytes # (Auto) 2.0 x10^3/uL (1.0-4.8) Monocytes # (Auto) 0.5 x10^3/uL (0.0-1.1) Eosinophils # (Auto) 0.2 x10^3/uL (0.0-0.7) Basophils # (Auto) 0.0 x10^3/uL (0.0-0.2) Prothrombin Time 23.6 SEC (11.7-14.0) Prothromb Time International Ratio 2.3 (0.8-1.1) Sodium Level 144 mmol/L (136-145) Potassium Level 3.1 mmol/L (3.5-5.1) Chloride Level 103 mmol/L (98-107) Carbon Dioxide Level 33 mmol/L (21-32) Anion Gap 8 (6-14) Blood Urea Nitrogen 9 mg/dL (8-26) Creatinine 1.5 mg/dL (0.7-1.3) Estimated GFR (Cockcroft-Gault) 55.5 Glucose Level 113 mg/dL (70-99) Hemoglobin A1c 6.8 % (4.8-5.6) Calcium Level 8.8 mg/dL (8.5-10.1) Magnesium Level 1.6 mg/dL (1.8-2.4) Triglycerides Level 99 mg/dL (0-150) Cholesterol Level 114 mg/dL (0-200) LDL Cholesterol, Calculated 53 mg/dL (0-100) VLDL Cholesterol, Calculated 20 mg/dL (0-40) Non-HDL Cholesterol Calculated 73 mg/dL (0-129) HDL Cholesterol 41 mg/dL (40-60) Cholesterol/HDL Ratio 2.8 Thyroid Stimulating Hormone (TSH) 2.590 uIU/mL (0.358-3.74) Test 12/08/16 11:56 12/08/16 16:48 12/08/16 20:08 12/09/16 04:30 Glucose (Fingerstick) 176 mg/dL (70-99) 94 mg/dL (70-99) 144 mg/dL (70-99) White Blood Count 8.3 x10^3/uL (4.0-11.0) Red Blood Count 4.14 x10^6/uL (4.30-5.70) Hemoglobin 11.4 g/dL (13.0-17.5) Hematocrit 34.3 % (39.0-53.0) Mean Corpuscular Volume 83 fL (79-100) Mean Corpuscular Hemoglobin 28 pg (25-35) Mean Corpuscular Hemoglobin Concent 33 g/dL (31-37) Red Cell Distribution Width 17.3 % (11.5-14.5) Platelet Count 283 x10^3/uL (140-400) Neutrophils (%) (Auto) 70 % (31-73) Lymphocytes (%) (Auto) 22 % (24-48) Monocytes (%) (Auto) 7 % (0-9) Eosinophils (%) (Auto) 1 % (0-3) Basophils (%) (Auto) 0 % (0-3) Neutrophils # (Auto) 5.8 x10^3uL (1.8-7.7) Lymphocytes # (Auto) 1.8 x10^3/uL (1.0-4.8) Monocytes # (Auto) 0.5 x10^3/uL (0.0-1.1) Eosinophils # (Auto) 0.1 x10^3/uL (0.0-0.7) Basophils # (Auto) 0.0 x10^3/uL (0.0-0.2) Prothrombin Time 19.6 SEC (11.7-14.0) Prothromb Time International Ratio 1.8 (0.8-1.1) Sodium Level 143 mmol/L (136-145) Potassium Level 3.0 mmol/L (3.5-5.1) Chloride Level 104 mmol/L (98-107) Carbon Dioxide Level 30 mmol/L (21-32) Anion Gap 9 (6-14) Blood Urea Nitrogen 12 mg/dL (8-26) Creatinine 1.5 mg/dL (0.7-1.3) Estimated GFR (Cockcroft-Gault) 55.5 Glucose Level 140 mg/dL (70-99) Calcium Level 9.1 mg/dL (8.5-10.1) Magnesium Level 1.9 mg/dL (1.8-2.4) Test 12/09/16 07:19 Glucose (Fingerstick) 143 mg/dL (70-99) Laboratory Tests Test 12/08/16 16:48 12/08/16 20:08 12/09/16 04:30 12/09/16 07:19 Glucose (Fingerstick) 94 mg/dL (70-99) 144 mg/dL (70-99) 143 mg/dL (70-99) White Blood Count 8.3 x10^3/uL (4.0-11.0) Red Blood Count 4.14 x10^6/uL (4.30-5.70) Hemoglobin 11.4 g/dL (13.0-17.5) Hematocrit 34.3 % (39.0-53.0) Mean Corpuscular Volume 83 fL (79-100) Mean Corpuscular Hemoglobin 28 pg (25-35) Mean Corpuscular Hemoglobin Concent 33 g/dL (31-37) Red Cell Distribution Width 17.3 % (11.5-14.5) Platelet Count 283 x10^3/uL (140-400) Neutrophils (%) (Auto) 70 % (31-73) Lymphocytes (%) (Auto) 22 % (24-48) Monocytes (%) (Auto) 7 % (0-9) Eosinophils (%) (Auto) 1 % (0-3) Basophils (%) (Auto) 0 % (0-3) Neutrophils # (Auto) 5.8 x10^3uL (1.8-7.7) Lymphocytes # (Auto) 1.8 x10^3/uL (1.0-4.8) Monocytes # (Auto) 0.5 x10^3/uL (0.0-1.1) Eosinophils # (Auto) 0.1 x10^3/uL (0.0-0.7) Basophils # (Auto) 0.0 x10^3/uL (0.0-0.2) Prothrombin Time 19.6 SEC (11.7-14.0) Prothromb Time International Ratio 1.8 (0.8-1.1) Sodium Level 143 mmol/L (136-145) Potassium Level 3.0 mmol/L (3.5-5.1) Chloride Level 104 mmol/L (98-107) Carbon Dioxide Level 30 mmol/L (21-32) Anion Gap 9 (6-14) Blood Urea Nitrogen 12 mg/dL (8-26) Creatinine 1.5 mg/dL (0.7-1.3) Estimated GFR (Cockcroft-Gault) 55.5 Glucose Level 140 mg/dL (70-99) Calcium Level 9.1 mg/dL (8.5-10.1) Magnesium Level 1.9 mg/dL (1.8-2.4) Medications Current Medications Iohexol (Omnipaque 300 Mg/ml) 75 ml 1X ONCE IV Last administered on 12/07/16 10:15; Start 12/07/16 at 09:30; Stop 12/07/16 at 09:31; Status DC Info (Do NOT chart on this entry -- for MONITORING) 1 each PRN DAILY PRN MC SEE COMMENTS; Start 12/07/16 at 09:30; Stop 12/09/16 at 09:29; Status DC Iohexol (Omnipaque 300 Mg/ml) 75 ml STK-MED ONCE .ROUTE ; Start 12/07/16 at 09:53 ; Stop 12/07/16 at 09:54; Status DC Ondansetron HCl (Zofran) 4 mg PRN Q8HRS PRN IV NAUSEA/VOMITING; Start 12/07/16 at 12:30; Stop 12/08/16 at 12:29; Status DC Morphine Sulfate 4 mg PRN Q2HR PRN IV PAIN; Start 12/07/16 at 12:30; Stop at 12:29; Status DC Potassium Chloride (Klor-Con) 40 meq 1X ONCE PO Last administered on 12/07/16 17:38; Start 12/07/16 at 15:30; Stop 12/07/16 at 15:40; Status DC Potassium Chloride (Klor-Con) 20 meq DAILYWBKFT PO Last administered on 07:35; Start 12/08/16 at 08:00; Stop 12/09/16 at 09:53; Status DC Allopurinol (Zyloprim) 300 mg DAILY PO Last administered on 12/09/16 07:34; Start 12/08/16 at 09:00 Atorvastatin Calcium (Lipitor) 40 mg QHS PO Last administered on 12/08/16 21:17 ; Start 12/07/16 at 21:00 Docusate Sodium (Colace) 100 mg PRN BID PRN PO CONSTIPATION; Start 12/07/16 at 15:30 Doxazosin Mesylate (Cardura) 4 mg DAILY PO Last administered on 12/09/16 07:34 ; Start 12/08/16 at 09:00 Furosemide (Lasix) 40 mg DAILY PO Last administered on 12/09/16 07:39; Start at 09:00 Acetaminophen/ Hydrocodone Bitart (Lortab 7.5/325) 1 tab PRN Q6HRS PRN PO PAIN ; Start 12/07/16 at 15:30 Levothyroxine Sodium (Synthroid) 75 mcg DAILY07 PO Last administered on 05:30; Start 12/08/16 at 07:00 Warfarin Sodium (Coumadin) 4 mg SuMoTuThFr PO Last administered on 12/08/16 17: 47; Start 12/08/16 at 16:00 Warfarin Sodium (Coumadin) 6 mg WeSa PO ; Start 12/10/16 at 16:00 Carvedilol (Coreg) 25 mg BIDWMEALS PO Last administered on 12/09/16 07:35; Start 12/07/16 at 17:00 Glimepiride (Amaryl) 1 mg DAILY PO Last administered on 12/09/16 07:34; Start 12/08/16 at 09:00 Aspirin (Kailyn Aspirin) 325 mg DAILYWBKFT PO Last administered on 12/09/16 07: 33; Start 12/08/16 at 08:00 Warfarin Sodium (Coumadin Per Physician) 1 each PRN DAILY PRN MC SEE COMMENTS Last administered on 12/08/16 14:37; Start 12/08/16 at 07:45 Potassium Chloride (Klor-Con) 40 meq 1X ONCE PO Last administered on 12/08/16 11:24; Start 12/08/16 at 09:45; Stop 12/08/16 at 09:50; Status DC Magnesium Sulfate/ Dextrose 50 ml @ 25 mls/hr 1X ONCE IV Last administered on 12/08/16 11:25; Start 12/08/16 at 10:00; Stop 12/08/16 at 11:59; Status DC Senna/Docusate Sodium (Senna Plus) 1 tab BID PO Last administered on 12/09/16 07:34; Start 12/08/16 at 11:30 Docusate Sodium (Colace) 100 mg BID PO Last administered on 12/09/16 07:34; Start 12/08/16 at 11:30 Magnesium Hydroxide (Milk Of Magnesia) 2,400 mg PRN Q12HR PRN PO CONSTIPATION; Start 12/08/16 at 11:15 Insulin Aspart (NovoLOG) 0-9 UNITS TIDWMEALS SQ ; Start 12/08/16 at 17:00 Dextrose (Dextrose 50%-Water Syringe) 12.5 gm PRN Q15MIN PRN IV SEE COMMENTS; Start 12/08/16 at 13:00 Acetaminophen (Tylenol) 650 mg PRN Q6HRS PRN PO FEVER; Start 12/08/16 at 13:00 Ondansetron HCl (Zofran) 4 mg PRN Q6HRS PRN IV NAUSEA/VOMITING; Start 12/08/16 at 13:00 Morphine Sulfate 2 mg PRN Q2HR PRN IV PAIN; Start 12/08/16 at 13:00 Tramadol HCl (Ultram) 50 mg PRN Q6HRS PRN PO PAIN; Start 12/08/16 at 13:00 Hydralazine HCl (Apresoline) 10 mg PRN Q4HRS PRN IVP ELEVATED BP, SEE COMMENTS ; Start 12/08/16 at 13:00 Docusate Sodium (Colace) 100 mg PRN DAILY PRN PO CONSTIPATION; Start 12/08/16 at 13:00 Potassium Chloride (Klor-Con) 40 meq DAILYWBKFT PO ; Start 12/10/16 at 08:00 Potassium Chloride (Klor-Con) 40 meq 1X ONCE PO Last administered on 12/09/16 10:14; Start 12/09/16 at 10:00; Stop 12/09/16 at 10:01; Status DC Active Scripts Active Klor-Con M20 (Potassium Chloride) 20 Meq Tab.er.prt 40 Meq PO DAILYWBKFT 30 Days Aspirin 325 Mg Tablet 325 Mg PO DAILYWBKFT 30 Days Colace (Docusate Sodium) 100 Mg Capsule 100 Cap PO PRN BID PRN Reported Furosemide 40 Mg Tablet 40 Mg PO DAILY Atorvastatin Calcium 40 Mg Tablet 40 Mg PO DAILY Synthroid (Levothyroxine Sodium) 75 Mcg Tablet 75 Mcg PO DAILYAC Hydrocodone-Apap 7.5-325 (Hydrocodone Bit/Acetaminophen) 1 Each Tablet 1 Tab PO PRN Q6HRS PRN Warfarin Sodium 4 Mg Tablet 4 Mg PO DAILY 4 mg Mon, Mon, , , Monday Coumadin (Warfarin Sodium) 6 Mg Tablet 6 Mg PO DAILY 6 mg Monday and Monday Carvedilol 25 Mg Tablet 25 Mg PO BIDWMEALS Iron 100 Plus Tablet (Iron,Carbonyl/Vit C/Vit B12/Fa) 1 Each Tablet 1 Each PO Allopurinol 300 Mg Tablet 1 Tab PO DAILY Glimepiride 1 Mg Tablet 1 Tab PO DAILY Doxazosin Mesylate 4 Mg Tablet 1 Tab PO DAILY Vitals/I & O Vital Sign - Last 24 Hours 12/08/16 12/08/16 12/08/16 12/08/16 14:45 17:47 19:21 20:00 Temp 98.1 98.1 98.1 98.1 Pulse 70 70 71 Resp 16 16 B/P (MAP) 144/80 (101) 144/80 151/75 (100) Pulse Ox 93 96 O2 Delivery Nasal Cannula Room Air Room Air O2 Flow Rate 2.0 12/08/16 12/09/16 12/09/16 12/09/16 23:08 03:07 07:11 07:34 Temp 98.9 98.8 98.2 98.9 98.8 98.2 Pulse 70 68 72 72 Resp 16 16 16 B/P (MAP) 136/81 (99) 145/81 (102) 147/81 (103) 147/81 Pulse Ox 96 97 96 O2 Delivery Room Air Nasal Cannula Nasal Cannula 12/09/16 12/09/16 12/09/16 07:35 07:43 11:33 Temp 98.2 98.2 Pulse 72 70 Resp 15 B/P (MAP) 147/81 160/78 (105) Pulse Ox 98 O2 Delivery Room Air Nasal Cannula Images I reviewed the brain MRI, there are no significant abnormalities, certainly no evidence of stroke, radiology interpretation is pending, though. CAREY PINA MD Dec 09, 2016 13:12
--- NOTE | 2016-12-09 13:18 | RAD ---
MRI Brain without contrast History: Unsteady gait Technique: Multiplanar, multisequential noncontrast MR imaging was performed of the brain. Contrast: None Comparison: None Findings: There is no evidence of an acute infarct or cytotoxic edema. Ventricular size is within normal limits. There is mild to moderate generalized supratentorial atrophy.There is no significant midline shift, mass effect, or focal abnormal extra-axial fluid collection. There is mild T2 and FLAIR hyperintense abnormality of the supratentorial white matter bilaterally greatest of the parietal lobes and periventricular white matter. There is preservation of the major intracranial flow-voids at the skull base. There is minimal patchy fluid and thickening of the left mastoid air cells. There is mucosal thickening and likely mucus retention cyst for the left maxillary sinus. There is patchy minimal ethmoid air cell mucosal thickening. There is [id number] mucosal thickening near floor of the left maxillary sinus. There are couple of adjacent cysts versus septated cyst of the right lacrimal gland up to 1.5 cm AP by 0.9 cm transverse. There has been lens surgery bilaterally.The cerebellar tonsils are normal in location. There is no significant abnormality of the pineal gland or pituitary gland. There is preserved marrow signal of the clivus. Impression: 1. There is [id number] supratentorial atrophy. Relatively mild T2 and FLAIR hyperintense signal abnormality of the supratentorial white matter is nonspecific although most commonly due to chronic microvascular ischemic disease in a patient this age. 2. There are couple of cysts or septated cyst of the right lacrimal gland. Electronically signed by: Tu Albrecht MD (12/09/2016 1:16 PM) [id number]
--- NOTE | 2016-12-09 14:15 | PDOC3 ---
Discharge Summary [facility] Date of Admission: Dec 07, 2016 Discharge Date: Dec 09, 2016 Admitting Diagnosis unsteady gait, CT neg for stroke, mri NEG FOR STROKE dm2 on po meds htn morbid obesity hypokalemia hypomagnesemia stable chronic diastolic CHF PAFIB on warfarin PPM constipation Problems: Final Diagnosis CONSULTS neuro Brief Hospital Course Mr. Guerra is a 71 old M, dm2, controlled ok, comes for unsteady gait, no ext weakness or other neurologic deficit. It could 2/[address] MRI , ct head all neg for Stroke. dc with asa, cont warfarin. dc time 35min Physical Exam no ext weakness, rapid hand rotating test and finger-nose test ok General: Alert, Oriented X3, Cooperative, No acute distress Heart: Regular rate, Normal S1, Normal S2 Lungs: Clear Abdomen: Normal bowel sounds, Soft Extremities: No clubbing, No edema, Normal pulses Skin: No breakdown, No significant lesion Patient History: Unknown Problems: Disposition home CONDITION AT DISCHARGE: Improved Diet regular Scheduled Allopurinol (Allopurinol), 1 TAB PO DAILY, (Reported) Aspirin (Aspirin), 325 MG PO DAILYWBKFT Atorvastatin Calcium (Atorvastatin Calcium), 40 MG PO DAILY, (Reported) Carvedilol (Carvedilol), 25 MG PO BIDWMEALS, (Reported) Doxazosin Mesylate (Doxazosin Mesylate), 1 TAB PO DAILY, (Reported) Furosemide (Furosemide), 40 MG PO DAILY, (Reported) Glimepiride (Glimepiride), 1 TAB PO DAILY, (Reported) Levothyroxine Sodium (Synthroid), 75 MCG PO DAILYAC, (Reported) Potassium Chloride (Klor-Con M20), 40 MEQ PO DAILYWBKFT Warfarin Sodium (Coumadin), 6 MG PO DAILY, (Reported) Warfarin Sodium (Warfarin Sodium), 4 MG PO DAILY, (Reported) Scheduled PRN Docusate Sodium (Colace), 100 CAP PO PRN BID PRN for CONSTIPATION Hydrocodone Bit/Acetaminophen (Hydrocodone-Apap 7.5-325 ), 1 TAB PO PRN Q6HRS PRN for PAIN, (Reported) Miscellaneous Medications Iron,Carbonyl/Vit C/Vit B12/Fa (Iron 100 Plus Tablet), 1 EACH PO, (Reported) Discontinued Medications Amlodipine Besylate/Benazepril (Amlodipine-Benazepril 10-40 Mg), 1 CAP PO DAILY, (Reported) Discontinued Reason: discontinu Aspirin (Aspirin), 1 TAB PO BID, (Reported) Carvedilol (Carvedilol), 1 TAB PO DAILY, (Reported) Discontinued Reason: Prescription changed Oxycodone Hcl (Oxycontin), 1 TAB PO BID Discontinued Reason: discontinu Oxycodone Hcl (Oxycodone Hcl), 1 TAB PO PRN Q6-8HRS PRN for Severe pain Discontinued Reason: discontinu Potassium Chloride (Potassium Chloride), 20 MEQ PO DAILY, (Reported) Threonine (L-Threonine), 75 GM MC, (Reported) Discontinued Reason: discontinu Tizanidine Hcl (Zanaflex), 4 MG PO QID PRN for MUSCLE SPASMS Discontinued Reason: discontinu Follow Up pcp in 2 weeks LI ZAMORA MD Dec 09, 2016 14:15
[2016-12-10] MEDS ORDERED: POTASSIUM CHLORIDE 20 MEQ TABLET.ER. PO SCH (08:00)
[2016-12-10] MEDS ORDERED: WARFARIN 6 MG TABLET. PO SCH (16:00)
== END 2016-12-09 13:30 | disposition home or self-care (01) | DRG 74 ==
LOC: ER 08:09 → 6 SOUTH 12:19
PROVIDERS: ADMIT Internal Medicine; ATTEND Internal Medicine
DX: E11.40 Type 2 diabetes mellitus with diabetic neuropathy, unspecified (principal); I11.0 Hypertensive heart disease with heart failure; I50.32 Chronic diastolic (congestive) heart failure; I48.0 Paroxysmal atrial fibrillation; E66.01 Morbid (severe) obesity due to excess calories; E03.9 Hypothyroidism, unspecified; M19.90 Unspecified osteoarthritis, unspecified site; R27.0 Ataxia, unspecified; R48.2 Apraxia; E78.00 Pure hypercholesterolemia, unspecified; E78.5 Hyperlipidemia, unspecified; E83.42 Hypomagnesemia; E87.6 Hypokalemia; K59.00 Constipation, unspecified; Z68.37 Body mass index [BMI] 37.0-37.9, adult; Z68.36 Body mass index [BMI] 36.0-36.9, adult; Z79.01 Long term (current) use of anticoagulants; Z82.49 Family history of ischemic heart disease and other diseases of the circulatory system; Z83.3 Family history of diabetes mellitus; Z95.0 Presence of cardiac pacemaker; Z79.82 Long term (current) use of aspirin
CPT/HCPCS: 36415; 70496; 70498; 70551; 71010; 80048; 80053; 80061; 81001; 82962; 83036; 83735; 84443; 84484; 85025; 85610; 93005; 93880; J1815; J7060; Q9967; 92610; 99285-25